=== PATIENT | female | born 1975 | race Caucasian/White ===

== ENCOUNTER 2020-10-12 18:42 | Emergency (ER) | payer MEDICAID, OTHER, SELFPAY ==
[2020-10-12 19:06] VITALS: BP 163/96; PULSE 94; RESP 18; TEMP 36.8; O2SAT 97; BMI 35.2
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
== END 2020-10-12 21:07 | disposition home or self-care (01) ==
PROVIDERS: Emergency Provider Internal Medicine
DX: S39.012A Strain of muscle, fascia and tendon of lower back, initial encounter (principal); S46.911A Strain of unspecified muscle, fascia and tendon at shoulder and upper arm level, right arm, initial encounter; V43.52XA Car driver injured in collision with other type car in traffic accident, initial encounter; Y93.89 Activity, other specified; Y92.414 Local residential or business street as the place of occurrence of the external cause; Y99.9 Unspecified external cause status
CPT/HCPCS: 99283; 99284

== ENCOUNTER 2021-03-25 14:18 | Outpatient (REF) | payer MEDICAID, SELFPAY ==
[2021-03-25 14:52] LABS: COVID-19 Test Negative (Negative)
== END 2021-03-25 14:19 | disposition home or self-care (01) ==
LOC: HO.LAB 14:18
PROVIDERS: Visit Provider Internal Medicine
DX: Z20.822 Contact with and (suspected) exposure to COVID-19 (principal)
CPT/HCPCS: 36415; 87635; C9803

== ENCOUNTER 2021-04-14 14:18 | Emergency (ER) | payer MEDICAID, SELFPAY ==
--- NOTE | 2021-04-14 | ECG_ITS ---
Test Reason : HEADACHE Blood Pressure : / mmHG Vent. Rate : 065 BPM Atrial Rate : 065 BPM P-R Int : 152 ms QRS Dur : 086 ms QT Int : 420 ms P-R-T Axes : 036 -11 -14 degrees QTc Int : 436 ms Normal sinus rhythm Moderate voltage criteria for LVH, may be normal variant Nonspecific ST abnormality Abnormal ECG No previous ECGs available Referred By: Generic ED Physician Electronically Signed By:JOSELIN ESCALANTE
--- NOTE | ~2021-04-14 | CT_ITS ---
EXAMINATION: CT ANGIOGRAM OF THE CHEST WITH AND WITHOUT CONTRAST (CT PULMONARY ANGIOGRAM FOR PE) CLINICAL INFORMATION: Reason for Exam sob, cp, elevated d dimer, r/o pe COMPARISON: chest x-ray April 14, 2021 TECHNIQUE: Prior to contrast administration, noncontrast localization images were obtained. Subsequently, multidetector volumetric imaging was performed from the thoracic inlet to below the diaphragms following the administration of 71 mL Omnipaque 350 intravenous contrast. No contrast reaction reported Sagittal, coronal, and MIP oblique sagittal reformatted images were obtained on the CT workstation, uploaded to PACS, and reviewed. This CT examination was performed using dose optimization techniques as appropriate, variously including the following: *Automated exposure control *Adjustment of mA and/or kV according to patient size (this includes techniques or standardized protocols for targeted exams where dose is matched to indication/reason for exam; i.e. extremities or head) *Use of iterative reconstruction technique Total exam dose-length product 293 mGy-cm FINDINGS: QUALITY OF STUDY/CONTRAST BOLUS: Satisfactory. PULMONARY ARTERIES: No central or segmental pulmonary emboli. THORACIC AORTA: No aneurysm or dissection. LUNG: No focal consolidation, nodules or masses. PLEURA: No pleural effusion or pneumothorax. MEDIASTINUM: Normal heart size. No pericardial effusion. No hilar or mediastinal lymphadenopathy. No evidence of septal bowing or right heart strain. CHEST WALL/AXILLA: No axillary or internal mammary lymphadenopathy. OSSEOUS STRUCTURES: No acute or suspicious osseous abnormality. UPPER ABDOMEN: Unremarkable. No reflux of contrast into the hepatic veins to suggest elevated right heart pressures. CT/CT angio chest PE protocol IMPRESSION: Normal CT of chest. No evidence of pulmonary embolism. VTE: negative
--- NOTE | ~2021-04-14 | XR_ITS ---
EXAMINATION: XR CHEST CLINICAL INFORMATION: Chest pain. Covid positive. COMPARISON: None TECHNIQUE: Frontal view of the chest was obtained. FINDINGS: No significant abnormality is noted involving the heart, lungs, mediastinum, bony thorax or soft tissues. XR/XR chest 1V IMPRESSION: Unremarkable examination.
[2021-04-14 15:02] VITALS: BP 167/96; PULSE 80; RESP 16; TEMP 36.5; O2SAT 98; BMI 38.7
[2021-04-14 16:00] VITALS: BP 150/99; PULSE 75; TEMP 36.9; O2SAT 100
--- NOTE | 2021-04-14 16:42 | ED_ITS ---
HPI - General Adult General Chief complaint: Headache Stated complaint: POS COVID CHEST DISCOMFORT Time Seen by Provider: 04/14/21 16:10 Source: patient Mode of arrival: ambulatory Limitations: no limitations History of Present Illness HPI narrative: 45-year-old female with a past medical history of asthma, migraine, arthritis here with some complaints of intermittent headache, chest discomfort with deep breathing and movement, cough and mild shortness of breath for the last few days. Patient tells me she started to have symptoms of COVID on April 04. She was tested on April 07 and found out she was positive on April 08. Today is her last day of quarantine. She tells me she initially had fever but this is resolved. No leg swelling or pain Tylenol helps her pain Related Data Previous Rx's Medication Instructions Recorded cyclobenzaprine 5 mg tablet 5 mg PO TID PRN #14 tab 10/12/20 Allergies Allergy/AdvReac Type Severity Reaction Status Date / Time aspirin [ASA] Allergy Unknown UNKNOWN Verified 10/12/20 19:50 Penicillins [PENICILLINS] Allergy Unknown UNKNOWN Verified 10/12/20 19:50 Review of Systems Review of Systems: Yes all other systems are reviewed and are negative Constitutional: Constitutional: Reports no additional constitutional complaint s, Denies body ache(s), Denies chills, Denies fever(s), Reports headache(s) and Denies weakness Eyes: Eyes: Reports no additional eye complaints and Denies change in vision ENT: Reports system reviewed and no additional complaints, except as documented, Denies dizziness, Reports headache(s), Denies nasal congestion, Denies nasal discharge and Denies neck pain Cardiovascular: Cardiovascular: Reports no additional cardiovascular complaints, Reports chest pain, Denies leg edema and Reports dyspnea Respiratory: Respiratory: Reports no additional respiratory complaints, Denies cough and Reports dyspnea Gastrointestinal: Gastrointestinal: Reports no additional gastrointestinal complaints, Denies abdominal pain, Denies diarrhea, Denies nausea and Denies vomiting Genitourinary: Genitourinary: Reports no additional female genitourinary complaints and Denies urinary incontinence Musculoskeletal: Musculoskeletal: Reports no additional musculoskeletal complaints, Denies back pain, Denies arthralgias, Denies joint swelling, Denies neck pain, Denies numbness and Denies tingling Integumentary/Breasts: Skin/Breast: Reports system reviewed and no additional complaints, except as docu and Denies rash Neurologic: Reports system reviewed and no additional complaints, except as documented, Denies Abnormal speech present, Denies dizziness, Reports headache(s), Denies numbness, Denies tingling and Denies weakness PMFSH Past Medical History Attestation statement: The following information was validated with the patient. Source: old records reviewed and nursing notes reviewed Medical History Asthma Head ache Social History Social History Alcohol intake: never Advance Directives: Yes Advance Directives Information Provided: Yes Advance Directives on File: No Patient : No Physical Exam Vital Signs: Vital Signs: Last Vital Signs Temp 98.2 F 04/14/21 20:37 Pulse 72 04/14/21 20:37 Resp 16 04/14/21 21:35 BP 151/91 H 04/14/21 20:37 Pulse Ox 100 04/14/21 16:00 Body Mass Index 38.7 Const: General: cooperative, healthy appearing, comfortable and no acute distress Orientation/consciousness: patient oriented x3 Limitations: no limitations HENMT: Head: Yes normal to inspection Ears: hearing grossly normal bilaterally General nose exam: Normal external nose present Face and sinus: Yes normal facial exam Mouth: Normal oral and palatal mucosa present Throat: Yes posterior oropharynx normal Eyes: General: appearance normal, both eyes and all related structures Pupils: Equal, round and reactive pupils present Neck: Neck: Yes normal visual inspection Chest: Other: Central chest tender to palpate, worsened with deep breathing and movement Chest palpation & inspection: normal inspection of the chest Resp: Effort & Inspection: normal respiratory effort Auscultation: clear to auscultation bilaterally Cardio: Rate: regular rate Rhythm: regular rhythm Peripheral pulses: Peripheral pulses 2+ throughout GI: Inspection: Yes normal to inspection Palpation (GI): Soft to palpation and nontender Auscultation: normal bowel sounds Back/Spine/Pelvis: Thoracic/Lumbar Spine: thoracic and lumbar spine normal to inspection Skin: General skin exam: no rashes or lesions noted Neuro: General: patient oriented x3, no focal motor deficits and normal sensation to monofilament Cranial nerves: Yes Equal, round and reactive pupils present Cognition (Neuro): normal cognition Speech: No Abnormal speech present Gait exam (Neuro): Normal gait present Motor exam (neuro): 5/5 motor strength present throughout Extrem: General: Yes normal to inspection, Yes no pedal edema and Yes no calf tenderness Course Course Course Narrative: 45-year-old female COVID positive here with complaints of some chest discomfort which is pleuritic in nature with some mild shortness of breath and intermittent headaches. Hemodynamically stable. No leg swelling or pain. Will check chest x-ray, labs, EKG. 1730-D dimer elevated. D/t complaints of chest discomfort, SOB with recent COVID will check CTA to r/o PE. 1999-CT negative for PE. No evidence of pneumonia. Repeat troponin delta. Less likely ACS with atypical chest pain and EKG which shows no ischemic changes. Discussed findings with the patient. Reviewed worrisome signs and symptoms of when to return to the emergency department. Comfortable discharge home. Oxygen saturations greater than 98% on room air. Speaking full sentences in no apparent distress Medical Decision Making MDM Narrative Medical decision making narrative: acs, pe, pna Medical Records Medical records reviewed: Yes I reviewed the patient's medical records. Lab Data Lab results reviewed: Yes I reviewed the patient's lab results. Result diagrams: 04/14/21 16:56 04/14/21 16:55 Labs: Lab Results 04/14/21 04/14/21 04/14/21 Range/Units 16:55 16:55 16:56 WBC 7.6 (4.8-10.8) X10*3/uL RBC 5.05 (4.20-5.50) X10*6/uL Hgb 14.0 (12.0-16.0) g/dl Hct 39.4 (37-47) % MCV 78.0 L (80-98) fL MCH 27.7 (27.0-33.0) pg MCHC 35.5 H (31.0-35.0) g/dl RDW 13.0 (11.0-16.0) % Plt Count 219 (160-400) X10*3/uL MPV 9.5 (9.4-12.3) fL Immature Gran % (Auto) 0.3 (0.0-0.4) % Neut % (Auto) 54.9 (45-73) % Lymph % (Auto) 26.1 (20-40) % [place] % (Auto) 7.8 (2-11) % Eos % (Auto) 10.4 H (0-4) % Baso % (Auto) 0.5 (0-2) % Lymph # (Auto) 2.0 (1.2-4.9) X10*3/uL [place] # (Auto) 0.6 (0.1-1.2) X10*3/uL Eos # (Auto) 0.8 H (0.0-0.4) X10*3/uL Baso # (Auto) 0.0 (0.0-0.2) X10*3/uL Abs Immat Gran (auto) 0.02 (0.00-0.03) X10*3/uL Absolute Neuts (auto) 4.2 (2.0-8.3) X10*3/uL Absolute Nucleated RBC 0.000 (0.0-0.012) X10*3/uL Nucleated RBC % (auto) 0.0 (0.0-0.2) /100WBC PT (9.9-13.0) SEC INR (0.9-1.1) D-Dimer NG/ML Sodium 138 (135-145) mmol/L Potassium 3.2 L (3.3-5.1) mmol/L Chloride 103 (96-108) mmol/L Carbon Dioxide 28 (22-29) mmol/L Anion Gap 10 L (12-20) BUN 5 L (9-16) mg/dL Creatinine 0.82 (0.5-1.4) mg/dL Estim Creat Clear Calc 84.6 Estimated GFR > 60 Random Glucose 132 H (60-115) mg/dL Calcium 8.9 (8.4-10.2) mg/dL Magnesium 1.7 (1.6-2.6) mg/dL Total Bilirubin 1.3 H (0.0-1.0) mg/dL Direct Bilirubin 0.4 (0.0-0.5) mg/dL AST 19 (5-31) U/L ALT 15 (0-31) U/L Alkaline Phosphatase 75 (39-117) U/L Troponin I High Sens 31.9 H* (<3.5-17.0) ng/L Total Protein 7.2 (6.5-8.0) g/dL Albumin 3.8 (3.5-5.0) g/dL 04/14/21 04/14/21 Range/Units 16:56 20:32 WBC (4.8-10.8) X10*3/uL RBC (4.20-5.50) X10*6/uL Hgb (12.0-16.0) g/dl Hct (37-47) % MCV (80-98) fL MCH (27.0-33.0) pg MCHC (31.0-35.0) g/dl RDW (11.0-16.0) % Plt Count (160-400) X10*3/uL MPV (9.4-12.3) fL Immature Gran % (Auto) (0.0-0.4) % Neut % (Auto) (45-73) % Lymph % (Auto) (20-40) % [place] % (Auto) (2-11) % Eos % (Auto) (0-4) % Baso % (Auto) (0-2) % Lymph # (Auto) (1.2-4.9) X10*3/uL [place] # (Auto) (0.1-1.2) X10*3/uL Eos # (Auto) (0.0-0.4) X10*3/uL Baso # (Auto) (0.0-0.2) X10*3/uL Abs Immat Gran (auto) (0.00-0.03) X10*3/uL Absolute Neuts (auto) (2.0-8.3) X10*3/uL Absolute Nucleated RBC (0.0-0.012) X10*3/uL Nucleated RBC % (auto) (0.0-0.2) /100WBC PT 12.4 (9.9-13.0) SEC INR 1.1 (0.9-1.1) D-Dimer 282 NG/ML Sodium (135-145) mmol/L Potassium (3.3-5.1) mmol/L Chloride (96-108) mmol/L Carbon Dioxide (22-29) mmol/L Anion Gap (12-20) BUN (9-16) mg/dL Creatinine (0.5-1.4) mg/dL Estim Creat Clear Calc Estimated GFR Random Glucose (60-115) mg/dL Calcium (8.4-10.2) mg/dL Magnesium (1.6-2.6) mg/dL Total Bilirubin (0.0-1.0) mg/dL Direct Bilirubin (0.0-0.5) mg/dL AST (5-31) U/L ALT (0-31) U/L Alkaline Phosphatase (39-117) U/L Troponin I High Sens 26.2 H* (<3.5-17.0) ng/L Total Protein (6.5-8.0) g/dL Albumin (3.5-5.0) g/dL Imaging Data Chest x-ray: Attestation: I personally reviewed and interpreted this imaging study as follows: Radiologist's impression: EXAMINATION: XR CHEST CLINICAL INFORMATION: Chest pain. Covid positive. COMPARISON: None TECHNIQUE: Frontal view of the chest was obtained. FINDINGS: No significant abnormality is noted involving the heart, lungs, mediastinum, bony thorax or soft tissues. XR/XR chest 1V IMPRESSION: Unremarkable examination. ? CT scan - chest: Attestation: I personally reviewed and interpreted this imaging study as follows: Radiologist's impression: Rosario Castaneda I??45??F??1975 ? Allergy/Adv: aspirin, Penicillins (More??) Close ED Discharge Packet 04/14/21 21:25 ER Physician Documentation 04/14/21 16:42 Electrocardiogram 04/14/21 00:00 Chest CTA 04/14/21 17:24 Chest X-Ray 04/14/21 16:25 Launch?Image [address] [address] [address] Scan Report Signed Patient: Rosario Castaneda I MR#: [id number] : 1975 Acct:[id number] Age/Sex: 45 / F ADM Date: 04/14/21 Loc: .ED Attending Dr: Ordering Physician: Hemalatha Tenorio NP Date of Service: 04/14/21 Procedure(s): CT angio chest PE protocol Accession Number(s): [id number] cc: Hemalatha Tenorio NP~ EXAMINATION: CT ANGIOGRAM OF THE CHEST WITH AND WITHOUT CONTRAST (CT PULMONARY ANGIOGRAM FOR PE) CLINICAL INFORMATION: Reason for Exam sob, cp, elevated d dimer, r/o pe COMPARISON: chest x-ray April 14, 2021? TECHNIQUE: Prior to contrast administration, noncontrast localization images were obtained. ? Subsequently, multidetector volumetric imaging was performed from the thoracic inlet to below the diaphragms following the administration of 71 mL Omnipaque 350 intravenous contrast. No contrast reaction reported Sagittal, coronal, and MIP oblique sagittal reformatted images were obtained on the CT workstation, uploaded to PACS, and reviewed. This CT examination was performed using dose optimization techniques as appropriate, variously including the following: *Automated exposure control *Adjustment of mA and/or kV according to patient size (this includes techniques or standardized protocols for targeted exams where dose is matched to indication/reason for exam; i.e. extremities or head) *Use of iterative reconstruction technique Total exam dose-length product 293 mGy-cm FINDINGS: QUALITY OF STUDY/CONTRAST BOLUS: Satisfactory. PULMONARY ARTERIES: No central or segmental pulmonary emboli.? THORACIC AORTA: No aneurysm or dissection. LUNG: No focal consolidation, nodules or masses. PLEURA: No pleural effusion or pneumothorax. MEDIASTINUM: Normal heart size.? No pericardial effusion.? No hilar or mediastinal lymphadenopathy.? No evidence of septal bowing or right heart strain. CHEST WALL/AXILLA: No axillary or internal mammary lymphadenopathy. OSSEOUS STRUCTURES: No acute or suspicious osseous abnormality.? UPPER ABDOMEN: Unremarkable.? No reflux of contrast into the hepatic veins to suggest elevated right heart pressures. CT/CT angio chest PE protocol IMPRESSION: Normal CT of chest. No evidence of pulmonary embolism. ? VTE: negative ECG Data Attestation: I personally reviewed and interpreted this ECG as follows: Interpretation: EKG 1628 Normal sinus rhythm with a rate of 65, normal NV, normal QRS, normal QT, nonspecific ST changes Discharge Plan Discharge Clinical Impression: Headache, Atypical chest pain Patient Disposition: Home, Self-Care Instructions: Chest Pain (ED), Acute Headache (ED) Additional Instructions: Your lab work, CT scan of your chest looked normal Continue fluids and rest Motrin or Tylenol as needed for pain or fever You do not need to continue your quarantine Prescriptions: No Action cyclobenzaprine 5 mg tablet 5 mg PO TID PRN (Reason: muscle spasm) Qty: 14 RF: 0 Referrals: Physician,Unknown [Primary Care Provider] - 2 days Interventions: ED Discharge Assessment Last Done: 04/14/21 21:35 Discharge Date/Time: 04/14/21 21:36
[2021-04-14 17:03] LABS: MANUAL DIFF FLAG NO
[2021-04-14 17:04] LABS: Basophils Percent Auto 0.5 % (0-2); Eosinophils Absolute Auto 0.8 X10*3/uL (0.0-0.4); Eosinophils Percent Auto 10.4 % (0-4); Hematocrit 39.4 % (37-47); Imm Gran Abs Auto 0.02 X10*3/uL (0.00-0.03); Imm Gran Pct Auto 0.3 % (0.0-0.4); Lymphocytes Percent Auto 26.1 % (20-40); Mean Corpuscular HGB Conc 35.5 g/dl (31.0-35.0); Mean Corpuscular Hemoglobin 27.7 pg (27.0-33.0); Mean Platelet Volume 9.5 fL (9.4-12.3); Monocytes Absolute Auto 0.6 X10*3/uL (0.1-1.2); Monocytes Percent Auto 7.8 % (2-11); Neutrophils Absolute Auto 4.2 X10*3/uL (2.0-8.3); Neutrophils Percent Auto 54.9 % (45-73); Platelet Count 219 X10*3/uL (160-400); Red Blood Count 5.05 X10*6/uL (4.20-5.50); White Blood Count 7.6 X10*3/uL (4.8-10.8)
[2021-04-14 17:09] LABS: INTERNATIONAL NORM RATIO 1.1 (0.9-1.1); Prothrombin Time 12.4 SEC (9.9-13.0)
[2021-04-14 17:12] LABS: D Dimer 282 NG/ML
[2021-04-14 17:20] LABS: Alanine Aminotransferase 15 U/L (0-31); Albumin Level 3.8 g/dL (3.5-5.0); Alkaline Phosphatase 75 U/L (39-117); Anion Gap 10 (12-20); Aspartate Amino Transferase 19 U/L (5-31); Bilirubin Direct 0.4 mg/dL (0.0-0.5); Bilirubin Total 1.3 mg/dL (0.0-1.0); Blood Urea Nitrogen 5 mg/dL (9-16); Calcium 8.9 mg/dL (8.4-10.2); Carbon Dioxide 28 mmol/L (22-29); Chloride 103 mmol/L (96-108); Creatinine Clr Calc Pharmacy 84.6; Estimated Glomerular Filt Rate > 60; Glucose Random 132 mg/dL (60-115); Magnesium 1.7 mg/dL (1.6-2.6); Potassium 3.2 mmol/L (3.3-5.1); Sodium 138 mmol/L (135-145); Total Protein 7.2 g/dL (6.5-8.0)
[2021-04-14 17:34] LABS: Troponin-I High Sensitivity 31.9 ng/L (<3.5-17.0)
[2021-04-14] MEDS: Potassium Chloride ER 20 MEQ TAB.ER.PRT 30 MEQ PO (19:05)
--- NOTE | 2021-04-14 19:10 | PC.NURSE ---
pt requesting pain medication for headache provider notified
--- NOTE | 2021-04-14 19:21 | PC.NURSE ---
pt off to CT
--- NOTE | 2021-04-14 19:32 | PC.NURSE ---
pt back from CT
[2021-04-14] MEDS: iohexoL 350 MG/ML 100 ML INFUS..BTL IV (19:33)
[2021-04-14] MEDS: Acetaminophen 325 MG TABLET 975 MG PO (19:33)
[2021-04-14 20:37] VITALS: BP 151/91; PULSE 72; TEMP 36.8
[2021-04-14 21:04] LABS: Troponin-I High Sensitivity 26.2 ng/L (<3.5-17.0)
[2021-04-14 21:35] VITALS: RESP 16
== END 2021-04-14 21:36 | disposition home or self-care (01) ==
PROVIDERS: Nurse Practitioner Family; Emergency Provider Emergency Medicine Emergency Medical Services
DX: U07.1 COVID-19 (principal); R51.9 Headache, unspecified; R07.9 Chest pain, unspecified; Z79.899 Other long term (current) drug therapy
CPT/HCPCS: 36415; 71045; 71275; 80048; 80076; 83735; 84484; 85025; 85379; 85610; 93005; 99284; Q9967

== ENCOUNTER 2021-06-11 11:28 | Emergency (ER) | payer MEDICAID, SELFPAY ==
[2021-06-11 11:48] VITALS: BP 141/84; PULSE 87; RESP 18; TEMP 36.8; O2SAT 97; BMI 37.0
--- NOTE | 2021-06-11 12:30 | ED.GENADULT ---
HPI - General Adult General Chief complaint: General Medical <Grupo Carmen - Last Filed: 06/11/21 12:43> Stated complaint: facial swelling, ear pain <Grupo Carmen - Last Filed: 06/11/21 12:43> Time Seen by Provider: 06/11/21 12:30 <Grupo Carmen - Last Filed: 06/11/21 12:43> Source: patient <Grupo Carmen - Last Filed: 06/11/21 12:43> Limitations: no limitations <Grupo Carmen - Last Filed: 06/11/21 12:43> History of Present Illness HPI narrative: Patient awoke this morning with right-sided facial swelling in front of her ear. Patient denies any recent trauma to that side of the face patient denies any dental pain ear pain nausea vomiting no history of diabetes and no history of similar events in the past. Symptoms are mild to moderate. Pain is 5/10. Patient denies fever chills chest pain shortness of breath. No other complaints at this time. Patient has past medical history of asthma migraine headaches which he takes meds as needed for. <Grupo Carmen - Last Filed: 06/11/21 12:43> Related Data Home medications: Previous Rx's Medication Instructions Recorded cyclobenzaprine 5 mg tablet 5 mg PO TID PRN #14 tab 10/12/20 <Grupo Carmen - Last Filed: 06/11/21 12:43> Allergies/adverse reactions: Allergies Allergy/AdvReac Type Severity Reaction Status Date / Time aspirin [ASA] Allergy Unknown UNKNOWN Verified 06/11/21 11:48 Penicillins [PENICILLINS] Allergy Unknown UNKNOWN Verified 06/11/21 11:48 <Grupo Carmen - Last Filed: 06/11/21 12:43> Review of Systems Constitutional: Constitutional: Denies chills, Denies fever(s), Denies headache(s) and Denies malaise <Grupo Carmen - Last Filed: 06/11/21 12:43> ENT: Denies headache(s) <Grupo Carmen - Last Filed: 06/11/21 12:43> Comments: Right-sided facial swelling <Grupo Carmen - Last Filed: 06/11/21 12:43> Cardiovascular: Cardiovascular: Denies chest pain and Denies dyspnea <Grupo Carmen - Last Filed: 06/11/21 12:43> Respiratory: Respiratory: Denies dyspnea <Grupo Carmen - Last Filed: 06/11/21 12:43> Gastrointestinal: Gastrointestinal: Denies nausea and Denies vomiting <Grupo Carmen - Last Filed: 06/11/21 12:43> Musculoskeletal: Musculoskeletal: Reports no additional musculoskeletal complaints and Denies numbness <Grupo Carmen - Last Filed: 06/11/21 12:43> Neurologic: Denies headache(s) and Denies numbness <Grupo Carmen - Last Filed: 06/11/21 12:43> Endocrine: Endocrine: Reports no additional endocrine complaints <Grupo Carmen - Last Filed: 06/11/21 12:43> [facility] Past Medical History Attestation statement: The following information was validated with the patient. <Grupo Carmen - Last Filed: 06/11/21 12:43> Medical History: Medical History Asthma Head ache <Grupo Carmen - Last Filed: 06/11/21 12:43> Social History Social History: Social History Alcohol intake: never Advance Directives: No Advance Directives Information Provided: Yes Patient : No <Grupo Carmen - Last Filed: 06/11/21 12:43> Physical Exam Vital Signs: Vital Signs: Last Vital Signs Temp 98.2 F 06/11/21 11:48 Pulse 87 06/11/21 11:48 Resp 18 06/11/21 11:48 BP 141/84 H 06/11/21 11:48 Pulse Ox 97 06/11/21 11:48 Body Mass Index 37.0 vital signs have been reviewed as normal and appeared to be correct. Blood pressure normal. Heart rate normal. Respiration rate normal. Temperature normal. Oxygen saturation normal. <Grupo Kemrit - Last Filed: 06/11/21 12:43> Vital Signs: Last Vital Signs Temp 98.2 F 06/11/21 11:48 Pulse 87 06/11/21 11:48 Resp 18 06/11/21 11:48 BP 141/84 H 06/11/21 11:48 Pulse Ox 97 06/11/21 11:48 Body Mass Index 37.0 <Boogie Bains MD - Last Filed: 06/11/21 12:41> Appearance: Alert. Oriented X3. No acute distress. Head: Normal external exam. Normocephalic. Atraumatic. Eyes: PERRLA. EOMI. Conjunctiva and sclera normal. Eyelids normal. ENT: Oropharynx is clear dentition is nontender no sign of oral abscesses noted positive swelling the right parotid gland slight tenderness noted right ear is clear TMs intact. Neck: Soft full range of motion CVS: Heart regular rate and rhythm no murmurs and rubs Respiratory: Breath sounds are clear to auscultation bilaterally. No accessory muscle use noted. Skin: Skin warm and dry. Normal skin color. Normal skin turgor. No rashes/lesions/lacerations noted. Extremities: No lower extremity edema. Extremities exhibit normal range of motion. Extremities nontender. Neuro: Oriented X 3. No motor deficit. No sensory deficit. Reflexes normal. <Grupo Carmen - Last Filed: 06/11/21 12:43> Course Course Course Narrative: Parotiditis Dental abscess Facial swelling Mastoiditis Symptoms seem consistent with parotidits case discussed with Dr. Bains patient also evaluated believes this is viral will discharge home with supportive care <Grupo Carmen - Last Filed: 06/11/21 12:43> Reevaluation(s) Reevaluation #1: Right facial swelling consistent with viral parotiditis will dc home on butterscotch candies and tylenol <Boogie Bains MD - Last Filed: 06/11/21 12:41> Time: 12:41 <Boogie Bains MD - Last Filed: 06/11/21 12:41> Discharge Plan Discharge Clinical Impression: Acute parotitis <Grupo Carmen - Last Filed: 06/11/21 12:43> Patient Disposition: Home, Self-Care <Grupo Carmen - Last Filed: 06/11/21 12:43> Instructions: Mumps in Adults (ED) <Grupo Carmen - Last Filed: 06/11/21 12:43> Additional Instructions: His symptoms are consistent with viral parotitis on the right side Use butterscotch candies to help swelling decrease Tylenol for pain Return if symptoms worsen <Grupo Carmen - Last Filed: 06/11/21 12:43> Prescriptions: No Action cyclobenzaprine 5 mg tablet 5 mg PO TID PRN (Reason: muscle spasm) Qty: 14 RF: 0 <Grupo Carmen - Last Filed: 06/11/21 12:43>
== END 2021-06-11 13:06 | disposition home or self-care (01) ==
PROVIDERS: Emergency Provider Emergency Medicine
DX: K11.21 Acute sialoadenitis (principal); J45.909 Unspecified asthma, uncomplicated
CPT/HCPCS: 99283

== ENCOUNTER 2021-08-20 09:13 | Emergency (ER) | payer MEDICAID, SELFPAY ==
[2021-08-20 09:27] VITALS: BP 211/97; PULSE 97; RESP 19; TEMP 36.6; O2SAT 98; BMI 35.2
--- NOTE | 2021-08-20 09:34 | ECG_ITS ---
Test Reason : chest tightness Blood Pressure : / mmHG Vent. Rate : 095 BPM Atrial Rate : 095 BPM P-R Int : 138 ms QRS Dur : 082 ms QT Int : 368 ms P-R-T Axes : 035 -05 -03 degrees QTc Int : 462 ms Normal sinus rhythm Minimal voltage criteria for LVH, may be normal variant ( R in aVL ) Nonspecific ST and T wave abnormality Prolonged QT Abnormal ECG When compared with ECG of 14-APR-2021 16:28, Nonspecific T wave abnormality, worse in Anterolateral leads Referred By: Generic ED Physician Electronically Signed By:Nikolay Spence
[2021-08-20 09:51] LABS: MANUAL DIFF FLAG NO
[2021-08-20 10:03] LABS: Basophils Percent Auto 0.6 % (0-2); Eosinophils Absolute Auto 0.7 X10*3/uL (0.0-0.4); Eosinophils Percent Auto 9.6 % (0-4); Hematocrit 40.8 % (37.0-47.0); Imm Gran Abs Auto 0.03 X10*3/uL (0.00-0.03); Imm Gran Pct Auto 0.4 % (0.0-0.4); Lymphocytes Absolute Auto 2.4 X10*3/uL (1.2-4.9); Lymphocytes Percent Auto 33.5 % (20-40); Mean Corpuscular HGB Conc 34.3 g/dl (31.0-35.0); Mean Corpuscular Hemoglobin 27.2 pg (27.0-33.0); Mean Corpuscular Volume 79.2 fL (80.0-98.0); Mean Platelet Volume 9.5 fL (9.4-12.3); Monocytes Absolute Auto 0.7 X10*3/uL (0.1-1.2); Monocytes Percent Auto 9.3 % (2-11); Neutrophils Absolute Auto 3.3 x10*3/uL (2.0-8.3); Neutrophils Percent Auto 46.6 % (45-73); Platelet Count 295 X10*3/uL (160-400); Red Blood Count 5.15 X10*6/uL (4.20-5.50); White Blood Count 7.1 X10*3/uL (4.8-10.8)
[2021-08-20 10:05] LABS: COVID-19 Test Positive (Negative); IDNOW Serial# 9DD0AD1C
[2021-08-20 10:10] LABS: Anion Gap 12 (12-20); Blood Urea Nitrogen 6 mg/dL (9-16); Calcium 9.2 mg/dL (8.4-10.2); Carbon Dioxide 27 mmol/L (22-29); Chloride 104 mmol/L (96-108); Creatinine Clr Calc Pharmacy 70.7; Estimated Glomerular Filt Rate > 60; Glucose Random 236 mg/dL (60-115); Potassium 3.1 mmol/L (3.3-5.1); Sodium 140 mmol/L (135-145)
[2021-08-20 10:25] VITALS: BP 139/91; PULSE 93; RESP 18; TEMP 37.3; O2SAT 97
--- NOTE | 2021-08-20 10:56 | ED.GENADULT ---
HPI - General Adult General Chief complaint: General Medical Stated complaint: Multiple complaints Time Seen by Provider: 08/20/21 09:45 Source: patient Mode of arrival: ambulatory Limitations: no limitations History of Present Illness HPI narrative: 46-year-old female who presents emergency department for evaluation of shortness of breath, chest tightness, dyspnea on exertion, cough, lightheadedness, headache, diarrhea and joint pain. The patient states that she has been sick since 08/16/2021 (5 days prior to evaluation). The patient has been vaccinated with the [place] COVID-19 vaccine x2 vaccinations. She states that her symptoms were getting progressively worse therefore she came to the emergency department for evaluation. Initial O2 saturation was 97% on room air. Related Data Previous Rx's Medication Instructions Recorded cyclobenzaprine 5 mg tablet 5 mg PO TID PRN #14 tab 10/12/20 Allergies Allergy/AdvReac Type Severity Reaction Status Date / Time aspirin [ASA] Allergy Unknown UNKNOWN Verified 06/11/21 11:48 Penicillins [PENICILLINS] Allergy Unknown UNKNOWN Verified 06/11/21 11:48 Review of Systems Review of Systems: Yes all other systems are reviewed and are negative [facility] Past Medical History [facility] Narrative: Past medical history: Hypertension, asthma, obesity, arthritis, migraines. Past surgical history: Partial hysterectomy, bilateral tubal ligation. Social history: Patient denies tobacco use. She occasionally drinks alcohol. She denies drug use. Medical History (Updated 08/20/21 @ 11:03 by Adam Crowell MD) Asthma Head ache HTN (hypertension) Social History Social History Alcohol intake: never Advance Directives: No Advance Directives Information Provided: No Patient : No Physical Exam Vital Signs: Vital Signs: Last Vital Signs Temp 99.2 F 08/20/21 10:25 Pulse 93 08/20/21 10:25 Resp 18 08/20/21 10:25 BP 139/91 H 08/20/21 10:25 Pulse Ox 97 08/20/21 10:25 BMI result Body Mass Index 35.2 Const: General: cooperative and no acute distress Orientation/consciousness: oriented to person and oriented to place Limitations: no limitations HENMT: Head: Yes normal to inspection, Yes normocephalic and Yes atraumatic Ears: external ears normal General nose exam: Normal external nose present Face and sinus: Yes normal facial exam Mouth: Normal oral and palatal mucosa present Throat: Yes posterior oropharynx normal Eyes: General: appearance normal, both eyes and all related structures Pupils: Equal, round and reactive pupils present Neck: Neck: Yes normal visual inspection, Yes no lymphadenopathy, Yes trachea midline and Yes supple Chest: Chest palpation & inspection: normal inspection of the chest and normal palpation of entire chest wall Resp: Effort & Inspection: normal respiratory effort and able to speak in complete sentences Auscultation: clear to auscultation bilaterally Cardio: Rate: regular rate Rhythm: regular rhythm Heart sounds: S1 normal heart sound present, S2 normal heart sound present and no murmurs GI: Inspection: Yes normal to inspection Palpation (GI): Soft to palpation, nontender and no guarding Auscultation: normal bowel sounds : General: Yes no CVA tenderness Back/Spine/Pelvis: Back: no CVA tenderness Skin: General skin exam: no rashes or lesions noted Neuro: General: oriented to person and oriented to place Cranial nerves: Yes CN's II-XII intact bilaterally and Yes Equal, round and reactive pupils present Cognition (Neuro): normal cognition Motor exam (neuro): 5/5 motor strength present throughout Extrem: General: Yes normal to inspection Psych: Appearance: grossly normal Speech and movement: Normal speech and movement present Affect: normal affect Attitude: cooperative Thought process: Normal thought process present Thought content: Normal thought content present Course Course Course Narrative: 46-year-old female who presents emergency department with a viral-like illness x5 days. Patient's initial vital signs revealed an elevated blood pressure of 139/91, pulse 93, respiratory 18, temperature 99.2? and O2 saturation 97% on room air. The patient's exam was otherwise unremarkable. The patient's laboratory evaluation revealed a slightly low potassium of 3.1 and a slightly elevated glucose of 236. COVID-19 test was positive. At this time, I do not think the patient has significant COVID pneumonia and her O2 saturation is normal. The patient does have significant risk factors for morbidity mortality from COVID-19 infection including obesity, asthma, hypertension. The patient will be referred to the [facility] monoclonal antibody clinic. Patient was given printed and verbal instructions and discharged home. Medical Decision Making Lab Data Result diagrams: 08/20/21 09:44 08/20/21 09:44 Labs: Lab Results 08/20/21 08/20/21 08/20/21 Range/Units 09:44 09:44 09:44 WBC 7.1 (4.8-10.8) X10*3/uL RBC 5.15 (4.20-5.50) X10*6/uL Hgb 14.0 (12.0-16.0) g/dl Hct 40.8 (37.0-47.0) % MCV 79.2 L (80.0-98.0) fL MCH 27.2 (27.0-33.0) pg MCHC 34.3 (31.0-35.0) g/dl RDW 13.0 (11.0-16.0) % Plt Count 295 (160-400) X10*3/uL MPV 9.5 (9.4-12.3) fL Immature Gran % (Auto) 0.4 (0.0-0.4) % Neut % (Auto) 46.6 (45-73) % Lymph % (Auto) 33.5 (20-40) % Granite % (Auto) 9.3 (2-11) % Eos % (Auto) 9.6 H (0-4) % Baso % (Auto) 0.6 (0-2) % Lymph # (Auto) 2.4 (1.2-4.9) X10*3/uL Granite # (Auto) 0.7 (0.1-1.2) X10*3/uL Eos # (Auto) 0.7 H (0.0-0.4) X10*3/uL Baso # (Auto) 0.0 (0.0-0.2) X10*3/uL Abs Immat Gran (auto) 0.03 (0.00-0.03) X10*3/uL Absolute Neuts (auto) 3.3 (2.0-8.3) x10*3/uL Absolute Nucleated RBC 0.000 (0.0-0.012) X10*3/uL Nucleated RBC % (auto) 0.0 (0.0-0.2) /100WBC Sodium 140 (135-145) mmol/L Potassium 3.1 L (3.3-5.1) mmol/L Chloride 104 (96-108) mmol/L Carbon Dioxide 27 (22-29) mmol/L Anion Gap 12 (12-20) BUN 6 L (9-16) mg/dL Creatinine 0.92 (0.5-1.4) mg/dL Estim Creat Clear Calc 70.7 Estimated GFR > 60 Random Glucose 236 H (60-115) mg/dL Calcium 9.2 (8.4-10.2) mg/dL Troponin I High Sens (<3.5-17.0) ng/L COVID-19 ([facility]) Positive A (Negative) COVID-19 Clin Com See Note 08/20/21 Range/Units 09:44 WBC (4.8-10.8) X10*3/uL RBC (4.20-5.50) X10*6/uL Hgb (12.0-16.0) g/dl Hct (37.0-47.0) % MCV (80.0-98.0) fL MCH (27.0-33.0) pg MCHC (31.0-35.0) g/dl RDW (11.0-16.0) % Plt Count (160-400) X10*3/uL MPV (9.4-12.3) fL Immature Gran % (Auto) (0.0-0.4) % Neut % (Auto) (45-73) % Lymph % (Auto) (20-40) % Granite % (Auto) (2-11) % Eos % (Auto) (0-4) % Baso % (Auto) (0-2) % Lymph # (Auto) (1.2-4.9) X10*3/uL Granite # (Auto) (0.1-1.2) X10*3/uL Eos # (Auto) (0.0-0.4) X10*3/uL Baso # (Auto) (0.0-0.2) X10*3/uL Abs Immat Gran (auto) (0.00-0.03) X10*3/uL Absolute Neuts (auto) (2.0-8.3) x10*3/uL Absolute Nucleated RBC (0.0-0.012) X10*3/uL Nucleated RBC % (auto) (0.0-0.2) /100WBC Sodium (135-145) mmol/L Potassium (3.3-5.1) mmol/L Chloride (96-108) mmol/L Carbon Dioxide (22-29) mmol/L Anion Gap (12-20) BUN (9-16) mg/dL Creatinine (0.5-1.4) mg/dL Estim Creat Clear Calc Estimated GFR Random Glucose (60-115) mg/dL Calcium (8.4-10.2) mg/dL Troponin I High Sens 17.0 (<3.5-17.0) ng/L COVID-19 ([facility]) (Negative) COVID-19 Clin Com Discharge Plan Discharge Clinical Impression: COVID-19 virus infection Patient Disposition: Home, Self-Care Instructions: COVID-19 (Coronavirus Disease 2019) (ED) Additional Instructions: Your vital signs today revealed a normal O2 saturation of 97 % on room air which is normal (92% to 100% is the normal range). We do not hospitalize people with a COVID-19 infection unless your O2 saturation drops below 90% and you have evidence for pneumonia on your chest x-ray. COVID-19 infection is a very bad viral infection and is causing all of your symptoms The symptoms that we normally see with a COVID-19 infection include sore throat, runny nose, chest pain, shortness of breath, shortness of breath with exertion, muscle aches, muscle pains, nausea, vomiting , diarrhea, loss of sense of taste or smell. You do not need to have all of the symptoms. Take Tylenol (acetaminophen) 500 mg pills, 2 pills every 4 to 6 hours as needed for pain and fever. Based on your evaluation today, it is okay to send you home. Please plan for self isolate for up to 14 days. Do not expose yourself to others. You may not go to work. Please continue to wear a mask at home, follow theCOVID-19 printed discharge instructions and wash your hands frequently. Please return to the emergency department if your symptoms pneumonia which would include worsening of your symptoms especially chest pain the breathing, shortness of breath at rest, shortness of breath with moving around her exerting herself, severe weakness, or if you develop any symptoms that are concerning to you. I am referring you to the [facility] COVID-19 monoclonal antibody treatment clinic in [place]. They should contact you on your cell phone to set up an appointment. If you do not hear from the clinic then you can emailed the clinic. You can also e-mail them if you do not hear from them in 2 days. Prescriptions: No Action cyclobenzaprine 5 mg tablet 5 mg PO TID PRN (Reason: muscle spasm) Qty: 14 RF: 0
== END 2021-08-20 11:47 | disposition home or self-care (01) ==
PROVIDERS: Emergency Provider Emergency Medicine Emergency Medical Services
DX: U07.1 COVID-19 (principal); I10 Essential (primary) hypertension; J45.909 Unspecified asthma, uncomplicated
CPT/HCPCS: 36415; 80048; 84484; 85025; 87635; 93005; 99283; 99284

== ENCOUNTER 2021-10-30 09:11 | Emergency (ER) | payer MEDICAID, SELFPAY ==
--- NOTE | ~2021-10-30 | XR_ITS ---
EXAMINATION: BILATERAL ANKLE, RIGHT KNEE AND CHEST. CLINICAL INFORMATION: Pain. COMPARISON: None TECHNIQUE: 3 views each ankle. 4 views right knee and chest 2 views. FINDINGS: Left ankle: There is bimalleolar soft tissue swelling. No visible fracture, dislocation or subluxation seen. The ankle mortise and subtalar joints are normal. Small calcaneal enthesophyte. Right knee: The tricompartment joint space is maintained normal. No visible acute fracture, dislocation or bony erosive changes. No abnormal suprapatellar joint effusion. There is prominent anterior tibial tubercle. Right ankle: There is a small retrocalcaneal enthesophyte. The ankle mortise and subtalar joints are normal. There is no visible acute fracture, dislocation or lytic process. There is mild soft tissue swelling lateral ankle. CHEST: The lungs are well-expanded and clear. The heart size and pulmonary vascularity is normal. No gross bony abnormality seen.. XR/XR ankle RT min 3V IMPRESSION: Small retrocalcaneal enthesophytes right ankle and calcaneal heel enthesophyte left ankle. No acute fracture or dislocation seen in either ankle. There is bimalleolar soft tissue swelling left ankle and lateral malleolar region right ankle. Unremarkable right knee exam. Unremarkable chest exam.
--- NOTE | ~2021-10-30 | XR_ITS ---
EXAMINATION: BILATERAL ANKLE, RIGHT KNEE AND CHEST. CLINICAL INFORMATION: Pain. COMPARISON: None TECHNIQUE: 3 views each ankle. 4 views right knee and chest 2 views. FINDINGS: Left ankle: There is bimalleolar soft tissue swelling. No visible fracture, dislocation or subluxation seen. The ankle mortise and subtalar joints are normal. Small calcaneal enthesophyte. Right knee: The tricompartment joint space is maintained normal. No visible acute fracture, dislocation or bony erosive changes. No abnormal suprapatellar joint effusion. There is prominent anterior tibial tubercle. Right ankle: There is a small retrocalcaneal enthesophyte. The ankle mortise and subtalar joints are normal. There is no visible acute fracture, dislocation or lytic process. There is mild soft tissue swelling lateral ankle. CHEST: The lungs are well-expanded and clear. The heart size and pulmonary vascularity is normal. No gross bony abnormality seen.. XR/XR knee RT 4V IMPRESSION: Small retrocalcaneal enthesophytes right ankle and calcaneal heel enthesophyte left ankle. No acute fracture or dislocation seen in either ankle. There is bimalleolar soft tissue swelling left ankle and lateral malleolar region right ankle. Unremarkable right knee exam. Unremarkable chest exam.
--- NOTE | ~2021-10-30 | XR_ITS ---
EXAMINATION: BILATERAL ANKLE, RIGHT KNEE AND CHEST. CLINICAL INFORMATION: Pain. COMPARISON: None TECHNIQUE: 3 views each ankle. 4 views right knee and chest 2 views. FINDINGS: Left ankle: There is bimalleolar soft tissue swelling. No visible fracture, dislocation or subluxation seen. The ankle mortise and subtalar joints are normal. Small calcaneal enthesophyte. Right knee: The tricompartment joint space is maintained normal. No visible acute fracture, dislocation or bony erosive changes. No abnormal suprapatellar joint effusion. There is prominent anterior tibial tubercle. Right ankle: There is a small retrocalcaneal enthesophyte. The ankle mortise and subtalar joints are normal. There is no visible acute fracture, dislocation or lytic process. There is mild soft tissue swelling lateral ankle. CHEST: The lungs are well-expanded and clear. The heart size and pulmonary vascularity is normal. No gross bony abnormality seen.. XR/XR ankle LT min 3V IMPRESSION: Small retrocalcaneal enthesophytes right ankle and calcaneal heel enthesophyte left ankle. No acute fracture or dislocation seen in either ankle. There is bimalleolar soft tissue swelling left ankle and lateral malleolar region right ankle. Unremarkable right knee exam. Unremarkable chest exam.
--- NOTE | ~2021-10-30 | XR_ITS ---
EXAMINATION: BILATERAL ANKLE, RIGHT KNEE AND CHEST. CLINICAL INFORMATION: Pain. COMPARISON: None TECHNIQUE: 3 views each ankle. 4 views right knee and chest 2 views. FINDINGS: Left ankle: There is bimalleolar soft tissue swelling. No visible fracture, dislocation or subluxation seen. The ankle mortise and subtalar joints are normal. Small calcaneal enthesophyte. Right knee: The tricompartment joint space is maintained normal. No visible acute fracture, dislocation or bony erosive changes. No abnormal suprapatellar joint effusion. There is prominent anterior tibial tubercle. Right ankle: There is a small retrocalcaneal enthesophyte. The ankle mortise and subtalar joints are normal. There is no visible acute fracture, dislocation or lytic process. There is mild soft tissue swelling lateral ankle. CHEST: The lungs are well-expanded and clear. The heart size and pulmonary vascularity is normal. No gross bony abnormality seen.. XR/XR chest 2V IMPRESSION: Small retrocalcaneal enthesophytes right ankle and calcaneal heel enthesophyte left ankle. No acute fracture or dislocation seen in either ankle. There is bimalleolar soft tissue swelling left ankle and lateral malleolar region right ankle. Unremarkable right knee exam. Unremarkable chest exam.
--- NOTE | ~2021-10-30 | US_ITS ---
EXAMINATION: US VENOUS ULTRASOUND WITH DOPPLER LOWER EXTREMITY, RIGHT CLINICAL INFORMATION: Right leg swelling. COMPARISON: None TECHNIQUE: Ultrasound of the deep veins is performed from the hip to the calf with compression sonography and color and pulse Doppler assessment. Spectral analysis with color-flow imaging is performed. FINDINGS: There is normal venous compression and respiratory variation and augmented flow. The visualized common femoral vein, superficial femoral vein, profunda femoral vein, popliteal vein, and the trifurcation region shows no evidence of deep venous thrombosis. There is no significant popliteal fossa cyst. If the patient's symptoms persist, followup ultrasound in 5 days 7 days might be of value to exclude proximal propagation from a non-visualized calf vein. US/US venous duplex LE RT IMPRESSION: No DVT demonstrated in the right lower extremity.
[2021-10-30 09:38] VITALS: BP 146/99; PULSE 86; RESP 16; TEMP 36.4; O2SAT 96; BMI 37.0
[2021-10-30 10:12] LABS: MANUAL DIFF FLAG NO
[2021-10-30 10:15] LABS: Basophils Percent Auto 0.7 % (0-2); Eosinophils Absolute Auto 0.9 X10*3/uL (0.0-0.4); Eosinophils Percent Auto 15.5 % (0-4); Hematocrit 39.9 % (37.0-47.0); Hemoglobin 13.6 g/dl (12.0-16.0); Imm Gran Abs Auto 0.02 X10*3/uL (0.00-0.03); Imm Gran Pct Auto 0.4 % (0.0-0.4); Mean Corpuscular HGB Conc 34.1 g/dl (31.0-35.0); Mean Corpuscular Hemoglobin 27.4 pg (27.0-33.0); Mean Corpuscular Volume 80.3 fL (80.0-98.0); Mean Platelet Volume 9.4 fL (9.4-12.3); Monocytes Absolute Auto 0.5 X10*3/uL (0.1-1.2); Monocytes Percent Auto 9.4 % (2-11); Neutrophils Absolute Auto 2.2 x10*3/uL (2.0-8.3); Platelet Count 236 X10*3/uL (160-400); Red Blood Count 4.97 X10*6/uL (4.20-5.50); Red Cell Distribution Width 13.2 % (11.0-16.0); White Blood Count 5.7 X10*3/uL (4.8-10.8)
[2021-10-30 10:19] LABS: INTERNATIONAL NORM RATIO 1.1 (0.9-1.1); Prothrombin Time 12.3 SEC (9.9-13.0)
[2021-10-30 10:36] LABS: Alanine Aminotransferase 22 U/L (0-31); Albumin Level 3.8 g/dL (3.5-5.0); Alkaline Phosphatase 85 U/L (39-117); Anion Gap 10 (12-20); Aspartate Amino Transferase 19 U/L (5-31); Bilirubin Total 0.9 mg/dL (0.0-1.0); Blood Urea Nitrogen 6 mg/dL (9-16); Calcium 9.1 mg/dL (8.4-10.2); Carbon Dioxide 27 mmol/L (22-29); Chloride 106 mmol/L (96-108); Creatinine Clr Calc Pharmacy 81.8; Estimated Glomerular Filt Rate > 60; Glucose Random 155 mg/dL (60-115); Potassium 3.6 mmol/L (3.3-5.1); Sodium 139 mmol/L (135-145); Total Protein 6.8 g/dL (6.5-8.0)
[2021-10-30 10:42] LABS: B Type Natriuretic Peptide 11 pg/mL (<100)
--- NOTE | 2021-10-30 11:20 | ED.EXTPRO ---
HPI - Extremity Problem General Chief complaint: Extremity Injury, Lower Stated complaint: Knee & ankle pain Time Seen by Provider: 10/30/21 09:39 Source: patient and family Mode of arrival: ambulatory Limitations: no limitations History of Present Illness HPI Narrative: 46-year-old female with a past medical history of hypertension, migraine headaches, asthma presenting to the ED with multiple complaints which include atraumatic right knee pain/swelling and atraumatic bilateral ankle pain/swelling for the past week and a half. She also reports a separate complaint reports over the past few days she has also developed some nasal congestion/rhinorrhea with a dry cough and some wheezing which she reports is much better after some treatments at home. She denies any fevers, chills, dizziness, headaches, neck pain/stiffness, trouble swallowing or breathing, dyspnea on exertion, orthopnea, chest pain, nausea/vomiting/diarrhea constipation, back pain, lower extremity edema, palpitations, paresthesias, rashes, recent travel, history of PVD disease, recent immobilization or surgery, recent illness or history of gout, sick contacts or any other symptoms complaints or concerns at this time. MD Complaint: joint swelling and joint pain Onset (ago): week(s) (-08/02) Pain Consistency: constant Location: left, right, lower extremity, knee (right knee and biateral ankles) and other (And left ankle) Severity scale (1-10): 8 Quality: aching and constant Radiation: distal Relieving factors: nothing Exacerbating factors: range of motion, weight bearing, walking and palpation Associated symptoms: other (Patient reports a separate complaint reports that her asthma has been acting up she has developed of dry cough with nasal congestion and wheezing although is much better after doing treatments at home) Related Data Previous Rx's Medication Instructions Recorded cyclobenzaprine 5 mg tablet 5 mg PO TID PRN #14 tab 10/12/20 albuterol sulfate 0.63 mg/3 mL 0.63 mg (3 mL) INHALATION QID PRN 10/30/21 solution for nebulization #75 ml albuterol sulfate 90 mcg/actuation 1 inh INHALATION QID PRN #8.5 g 10/30/21 aerosol inhaler azithromycin 250 mg tablet See Rx Instructions PO .COMPLEX #6 10/30/21 tab cyclobenzaprine 10 mg tablet 10 mg PO Q8H PRN #14 tab 10/30/21 prednisone 20 mg tablet 40 mg PO DAILY 5 Days #10 tab 10/30/21 tramadol 50 mg tablet 50 mg PO Q8H PRN #14 tab 10/30/21 Allergies Allergy/AdvReac Type Severity Reaction Status Date / Time aspirin [ASA] Allergy Unknown UNKNOWN Verified 06/11/21 11:48 Penicillins [PENICILLINS] Allergy Unknown UNKNOWN Verified 06/11/21 11:48 Review of Systems Review of Systems: Constitutional : No Weight loss, No Fever, No Chills, No Night Sweats, No Fatigue, No Malaise ENT/Mouth : No Hearing loss, No Ear Pain, No Nasal Congestion, No Sinus Pain, No Hoarseness, No sore throat, No Rhinorrhea, No Swallowing Difficulty Eyes: No Eye Pain, No Swelling, No Redness, No Foreign Body, No Discharge, No Vision Changes Cardiovascular : No Chest Pain, No SOB, No Dyspnea on Exertion, No Orthopnea, No Edema, No Palpitations Respiratory : + Cough with wheezing, No Sputum, No Smoke Exposure, No Dyspnea Gastrointestinal : No Nausea, No Vomiting, No Diarrhea, No Constipation, No abdominal Pain, No Hematochezia, No Melena Genitourinary : no irregular bleeding, No Dysuria, No Urinary Frequency, No Hematuria, No Urinary Incontinence, No Urgency, No Flank Pain, No Urinary Flow Changes, No Hesitancy Musculoskeletal : + bilateral knee and left ankle joint pain, No Myalgias, No Joint Swelling Skin : No Skin Lesions, No rash Neuro : No Weakness, No Numbness, No Paresthesias, No Loss of Consciousness, No Dizziness, No Headache Psych : No Anxiety/Panic, No Depression, No SI/HI/AH/VH, No Social Issues, Heme/Lymph: No Bruising, No Bleeding,No Lymphadenopathy Endocrine : No Polyuria, No Polydipsia, No Temperature Intolerance Yes all other systems are reviewed and are negative [facility] Past Medical History Attestation statement: The following information was validated with the patient. Medical History Asthma Head ache HTN (hypertension) Social History Social History Alcohol intake: never Advance Directives: No Patient : No Physical Exam Vital Signs: Vital Signs: Last Vital Signs Temp 97.5 F 10/30/21 09:38 Pulse 86 10/30/21 09:38 Resp 16 10/30/21 09:38 BP 146/99 H 10/30/21 09:38 Pulse Ox 96 10/30/21 09:38 BMI result Body Mass Index 37.0 vital signs have been reviewed as normal and appeared to be correct. Blood pressure 146/99. Heart rate normal. Respiration rate normal. Temperature normal. Oxygen saturation normal. Appearance: Alert. Oriented X3. No acute distress. Head: Normal external exam. Normocephalic. Atraumatic. Eyes: PERRLA. EOMI. Conjunctiva and sclera normal. Eyelids normal. ENT: Pharynx normal. Uvula midline. Moist mucous membranes. Normal voice. No trismus noted. No drooling noted. No muffled voice noted. Neck: Normal inspection. Neck supple. FROM. No adenopathy. Thyroid Normal. No tracheal deviation noted. No crepitus is noted. No meningeal signs. No neck mass noted. No signs of trauma noted. CVS: Normal heart rate and rhythm. Heart sound normal. Pulses normal throughout. No murmurs/rales/gallops. Respiratory: No respiratory distress. Painless inspiration. Breath sounds normal. No wheezes/rales/rhonchi noted. Chest nontender. No crepitus is noted. No signs of trauma noted. No accessory muscle usage noted or decreased air movement noted. No signs of trauma. Abdomen: Soft and nontender. Bowel sounds normal in all 4 quadrants. No distention noted. No organomegaly noted. No visible injury noted. Back: Full range of motion noted. Nontender. Skin: Skin warm and dry. Normal skin color. Normal skin turgor. No rashes/lesions/lacerations noted. Extremities: Patient with tenderness palpation to right knee at the patellar aspect although she has full range of motion of right knee no obvious ligamentous or tendon injury noted. This is not consistent with septic joint. There is no erythema/edema/streaking/induration or fluctuance or any signs of infection. She has a normal steady gait. She has mild tenderness palpation to bilateral ankles. She does have mild soft tissue swelling to the right lateral malleolus of the right ankle. No obvious ligamentous or tendon injury noted to bilateral ankles. Achilles tendons are intact negative Reyes's test. No obvious signs of infection not consistent with septic joint to bilateral ankles. She does have mild tenderness palpation to the right calf. Otherwise no no lower extremity pitting edema. No calf tenderness to the left leg. Otherwise all other extremities exhibit normal range of motion and nontender. Neuro: Oriented X 3. No motor deficit. No sensory deficit. Reflexes normal. Normal steady gait. No focal neuro deficits noted. CN's II-XII intact bilaterally? Vascular: + radial pulses/+ 2 distal pedal pulses/+2 dorsalis pedis b/l. Normal cap refill. No cyanosis noted to upper extremity nails and lower extremity toes nails. Course Course Course Narrative: 10am - 46-year-old female with a past medical history of hypertension, migraine headaches, asthma presenting to the ED with multiple complaints which include atraumatic right knee pain/swelling and atraumatic bilateral ankle pain/swelling for the past week and a half. She also reports a separate complaint reports over the past few days she has also developed some nasal congestion/rhinorrhea with a dry cough and some wheezing which she reports is much better after some treatments at home. Plan: Labs, chest x-ray, venous duplex ultrasound of right lower extremity, x-ray of right knee and x-ray of bilateral ankles then re-evaluate. Reevaluation(s) Reevaluation #1: All labs within normal limits. Venous duplex ultrasound of right lower extremity negative for DVT. Chest x-ray within normal limits no acute processes are noted. Bilateral ankle x-rays revealed chronic changes no acute processes noted. And right knee x-ray within normal limits no acute processes noted. Patient most likely asthma exacerbation although no wheezing on exam therefore no treatment needed. Will DC home with symptomatic treatment for her asthma. Will also DC home with symptomatic treatment for her muscular skeletal pain and instructions return if any new or worsening symptoms to follow up with primary care provider. Patient understands agrees with this plan. Time: 12:34 MDM - Extremity (Nontraumatic) Medical Records Attestation: I reviewed the patient's medical records. Lab Data Attestation: I reviewed the patient's lab results. Result diagrams: 10/30/21 10:09 10/30/21 10:09 Labs: Lab Results 10/30/21 10/30/21 10/30/21 Range/Units 10:09 10:09 10:09 WBC 5.7 (4.8-10.8) X10*3/uL RBC 4.97 (4.20-5.50) X10*6/uL Hgb 13.6 (12.0-16.0) g/dl Hct 39.9 (37.0-47.0) % MCV 80.3 (80.0-98.0) fL MCH 27.4 (27.0-33.0) pg MCHC 34.1 (31.0-35.0) g/dl RDW 13.2 (11.0-16.0) % Plt Count 236 (160-400) X10*3/uL MPV 9.4 (9.4-12.3) fL Immature Gran % (Auto) 0.4 (0.0-0.4) % Neut % (Auto) 39.0 L (45-73) % Lymph % (Auto) 35.0 (20-40) % Yancey % (Auto) 9.4 (2-11) % Eos % (Auto) 15.5 H (0-4) % Baso % (Auto) 0.7 (0-2) % Lymph # (Auto) 2.0 (1.2-4.9) X10*3/uL Yancey # (Auto) 0.5 (0.1-1.2) X10*3/uL Eos # (Auto) 0.9 H (0.0-0.4) X10*3/uL Baso # (Auto) 0.0 (0.0-0.2) X10*3/uL Abs Immat Gran (auto) 0.02 (0.00-0.03) X10*3/uL Absolute Neuts (auto) 2.2 (2.0-8.3) x10*3/uL Absolute Nucleated RBC 0.000 (0.0-0.012) X10*3/uL Nucleated RBC % (auto) 0.0 (0.0-0.2) /100WBC PT 12.3 (9.9-13.0) SEC INR 1.1 (0.9-1.1) Sodium 139 (135-145) mmol/L Potassium 3.6 (3.3-5.1) mmol/L Chloride 106 (96-108) mmol/L Carbon Dioxide 27 (22-29) mmol/L Anion Gap 10 L (12-20) BUN 6 L (9-16) mg/dL Creatinine 0.82 (0.5-1.4) mg/dL Estim Creat Clear Calc 81.8 Estimated GFR > 60 Random Glucose 155 H (60-115) mg/dL Calcium 9.1 (8.4-10.2) mg/dL Magnesium 2.0 (1.6-2.6) mg/dL Total Bilirubin 0.9 (0.0-1.0) mg/dL AST 19 (5-31) U/L ALT 22 (0-31) U/L Alkaline Phosphatase 85 (39-117) U/L B-Natriuretic Peptide (<100) pg/mL Total Protein 6.8 (6.5-8.0) g/dL Albumin 3.8 (3.5-5.0) g/dL 10/30/21 Range/Units 10:09 WBC (4.8-10.8) X10*3/uL RBC (4.20-5.50) X10*6/uL Hgb (12.0-16.0) g/dl Hct (37.0-47.0) % MCV (80.0-98.0) fL MCH (27.0-33.0) pg MCHC (31.0-35.0) g/dl RDW (11.0-16.0) % Plt Count (160-400) X10*3/uL MPV (9.4-12.3) fL Immature Gran % (Auto) (0.0-0.4) % Neut % (Auto) (45-73) % Lymph % (Auto) (20-40) % Yancey % (Auto) (2-11) % Eos % (Auto) (0-4) % Baso % (Auto) (0-2) % Lymph # (Auto) (1.2-4.9) X10*3/uL Yancey # (Auto) (0.1-1.2) X10*3/uL Eos # (Auto) (0.0-0.4) X10*3/uL Baso # (Auto) (0.0-0.2) X10*3/uL Abs Immat Gran (auto) (0.00-0.03) X10*3/uL Absolute Neuts (auto) (2.0-8.3) x10*3/uL Absolute Nucleated RBC (0.0-0.012) X10*3/uL Nucleated RBC % (auto) (0.0-0.2) /100WBC PT (9.9-13.0) SEC INR (0.9-1.1) Sodium (135-145) mmol/L Potassium (3.3-5.1) mmol/L Chloride (96-108) mmol/L Carbon Dioxide (22-29) mmol/L Anion Gap (12-20) BUN (9-16) mg/dL Creatinine (0.5-1.4) mg/dL Estim Creat Clear Calc Estimated GFR Random Glucose (60-115) mg/dL Calcium (8.4-10.2) mg/dL Magnesium (1.6-2.6) mg/dL Total Bilirubin (0.0-1.0) mg/dL AST (5-31) U/L ALT (0-31) U/L Alkaline Phosphatase (39-117) U/L B-Natriuretic Peptide 11 (<100) pg/mL Total Protein (6.5-8.0) g/dL Albumin (3.5-5.0) g/dL Imaging Data Chest x-ray/bilateral ankle x-rays and right knee x-ray: Attestation: I personally reviewed and interpreted this imaging study as follows: Radiologist's impression: FINDINGS: Left ankle: There is bimalleolar soft tissue swelling. No visible fracture, dislocation or subluxation seen. The ankle mortise and subtalar joints are normal. Small calcaneal enthesophyte. Right knee: The tricompartment joint space is maintained normal. No visible acute fracture, dislocation or bony erosive changes. No abnormal suprapatellar joint effusion. There is prominent anterior tibial tubercle. Right ankle: There is a small retrocalcaneal enthesophyte. The ankle mortise and subtalar joints are normal. There is no visible acute fracture, dislocation or lytic process. There is mild soft tissue swelling lateral ankle. CHEST: The lungs are well-expanded and clear. The heart size and pulmonary vascularity is normal. No gross bony abnormality seen.. XR/XR knee RT 4V IMPRESSION: Small retrocalcaneal enthesophytes right ankle and calcaneal heel enthesophyte left ankle. No acute fracture or dislocation seen in either ankle. There is bimalleolar soft tissue swelling left ankle and lateral malleolar region right ankle. ? Unremarkable right knee exam. ? Unremarkable chest exam. Discharge Plan Discharge Clinical Impression: Asthma, Muscle strain of ankle, Strain of right knee Patient Disposition: Home, Self-Care Instructions: Asthma (DC), Ankle Strain (ED) Prescriptions: New tramadol 50 mg tablet 50 mg PO Q8H PRN (Reason: pain) Qty: 14 0RF Rx Instructions: May partially fill upon patient request cyclobenzaprine 10 mg tablet 10 mg PO Q8H PRN (Reason: Muscle spasm) Qty: 14 0RF azithromycin 250 mg tablet See Rx Instructions PO .COMPLEX Qty: 6 0RF Rx Instructions: take 500 mg today (day 1), then 250 mg for 4 days (days 2-5) prednisone 20 mg tablet 40 mg PO DAILY 5 Days Qty: 10 0RF albuterol sulfate 0.63 mg/3 mL solution for nebulization 0.63 mg inhalation QID PRN (Reason: shortness of breath or wheezing) Qty: 75 0RF albuterol sulfate 90 mcg/actuation HFA aerosol inhaler 1 inh inhalation QID PRN (Reason: shortness of breath or wheezing) Qty: 8.5 0RF No Action cyclobenzaprine 5 mg tablet 5 mg PO TID PRN (Reason: muscle spasm) Qty: 14 0RF Rx Instructions: This medication will cause drowsiness, no driving for 8 hours after taking Referrals: [facility] [Primary Care Provider] - 2 days Print Language: Amharic
== END 2021-10-30 12:48 | disposition home or self-care (01) ==
PROVIDERS: Physician Assistant Medical; Emergency Provider Emergency Medicine
DX: J45.909 Unspecified asthma, uncomplicated (principal); S96.912A Strain of unspecified muscle and tendon at ankle and foot level, left foot, initial encounter; S96.911A Strain of unspecified muscle and tendon at ankle and foot level, right foot, initial encounter; S86.911A Strain of unspecified muscle(s) and tendon(s) at lower leg level, right leg, initial encounter; X58.XXXA Exposure to other specified factors, initial encounter; M25.561 Pain in right knee; M25.572 Pain in left ankle and joints of left foot; M25.571 Pain in right ankle and joints of right foot; I10 Essential (primary) hypertension; Y93.9 Activity, unspecified; Y92.9 Unspecified place or not applicable; Y99.9 Unspecified external cause status; Z79.899 Other long term (current) drug therapy
CPT/HCPCS: 36415; 71046; 73564; 73610; 80053; 83735; 83880; 85025; 85610; 93971; 99283; 99284

== ENCOUNTER 2022-06-09 07:33 | Emergency (ER) | payer MEDICAID, SELFPAY ==
[2022-06-09 08:04] VITALS: BP 182/95; PULSE 88; RESP 16; TEMP 37.1; O2SAT 97; BMI 35.2
[2022-06-09 09:11] LABS: Influenza A PCR NEGATIVE (Negative); Influenza B PCR NEGATIVE (Negative); Resp Syncy Virus RNA Qual PCR NEGATIVE (Negative); SARS COV2 PCR INHOUSE NEGATIVE (Negative)
--- NOTE | 2022-06-09 09:13 | ED.GENADULT ---
HPI - General Adult General Chief complaint: General Medical Stated complaint: Flu Symptoms Time Seen by Provider: 06/09/22 08:39 Source: patient Mode of arrival: ambulatory Limitations: no limitations History of Present Illness HPI narrative: 46-year-old female history of asthma presents to ED for coughing, body aches, fever, chills, sore throat the past couple of days. Patient states she lives alone. Patient denies any chest pain, shortness of breath, leg swelling, coughing up blood, or pleurisy. Related Data Previous Rx's Medication Instructions Recorded cyclobenzaprine 5 mg tablet 5 mg PO TID PRN muscle spasm #14 10/12/20 tabs albuterol sulfate 0.63 mg/3 mL 0.63 mg (3 mL) inhalation QID PRN 10/30/21 solution for nebulization shortness of breath or wheezing #75 mL albuterol sulfate 90 mcg/actuation 1 inh inhalation QID PRN shortness 10/30/21 aerosol inhaler of breath or wheezing #8.5 grams azithromycin 250 mg tablet See Rx Instructions PO .COMPLEX #6 10/30/21 tabs cyclobenzaprine 10 mg tablet 10 mg PO Q8H PRN Muscle spasm #14 10/30/21 tabs nebulizers (AeroEclipse II #1 ea 10/30/21 Nebulizer) prednisone 20 mg tablet 40 mg PO DAILY rash 5 days #10 tabs 10/30/21 tramadol 50 mg tablet 50 mg PO Q8H PRN pain #14 tabs 10/30/21 albuterol sulfate 90 mcg/actuation 2 puff inhalation Q4-6H PRN 06/09/22 aerosol inhaler shortness of breath or wheezing #8.5 grams benzonatate 100 mg capsule 100 mg PO TID PRN cough 5 days #21 06/09/22 caps prednisone 20 mg tablet 40 mg PO DAILY 5 days #10 tabs 06/09/22 Allergies Allergy/AdvReac Type Severity Reaction Status Date / Time aspirin [ASA] Allergy Unknown UNKNOWN Verified 02/19/22 12:32 Penicillins [PENICILLINS] Allergy Unknown UNKNOWN Verified 02/19/22 12:32 Review of Systems Review of Systems: coughing, bodyaches, fever, chills, sore throat Yes all other systems are reviewed and are negative PMFSH Past Medical History Medical History Asthma Head ache HTN (hypertension) Social History Social History (System 02/19/22 @ 12:32 by Veronica Guzman) Alcohol intake: never Advance Directives: No Advance Directives Information Provided: Yes Physical Exam ED Vital Signs: Vital Signs - 24 hr 06/09/22 08:04 Temperature 98.8 F Pulse Rate 88 Respiratory Rate 16 Blood Pressure 182/95 H Pulse Oximetry 97 Oxygen Delivery Method Room Air BMI result Body Mass Index 35.2 Const General: cooperative, healthy appearing, comfortable, no acute distress, well developed, alert, awake and Physically active Orientation/consciousness: oriented to time and patient oriented x3 HENMT Head: Yes normal to inspection, Yes No palpable skull fracture present, Yes normocephalic, Yes atraumatic and Yes abrasion Throat: Yes posterior oropharynx normal, Yes tonsils normal and Yes uvula midline Eyes General: appearance normal, both eyes and all related structures Neck Neck: Yes normal visual inspection, Yes full ROM, Yes no lymphadenopathy, Yes no meningeal signs, Yes trachea midline, Yes supple, No anterior neck swelling and No tender Chest Chest palpation & inspection: normal inspection of the chest and normal palpation of entire chest wall Resp Effort & Inspection: normal respiratory effort and able to speak in complete sentences Auscultation: clear to auscultation bilaterally Cardio Jugular venous distension: no JVD Heart sounds: S1 normal heart sound present and S2 normal heart sound present GI Inspection: Yes normal to inspection and No abdominal wall ecchymosis Palpation (GI): Soft to palpation, not firm, nontender, no guarding and not rigid General: No CVA tenderness and Yes no CVA tenderness Back/Spine/Pelvis Back: no CVA tenderness, No CVA tenderness and No back tenderness Skin General skin exam: no rashes or lesions noted and elasticity normal Neuro General: oriented to time, patient oriented x3, gait normal, tone normal and no meningeal signs Cranial nerves: Yes CN's II-XII intact bilaterally Extrem General: Yes normal to inspection and Yes full ROM Psych Appearance: grossly normal, well kempt and not disheveled Course Course Course Narrative: Patient well-appearing. SARS swab ordered. Reevaluation(s) Reevaluation #1: COVID, influenza, RSV came back negative. Patient states he has had asthma with no albuterol pump. Will prescribe albuterol inhaler Time: 09:16 URI Medical Decision Making Lab Data Labs: Lab Results 06/09/22 Range/Units 07:58 Influenza Type A (PCR) NEGATIVE (Negative) Influenza Type B (PCR) NEGATIVE (Negative) RSV RNA Qual (PCR) NEGATIVE (Negative) SARS-CoV-2 RNA (RT-PCR) NEGATIVE (Negative) Discharge Plan Discharge Clinical Impression: URI (upper respiratory infection) Patient Disposition: Home, Self-Care Instructions: Upper Respiratory Infection (ED), Asthma (ED) Additional Instructions: Your COVID RSV swab came back negative. Her influenza swab also came back negative. Will be discharged with albuterol inhaler and Tessalon Perles for cough. Please follow-up with your primary care provider. Return to ED for any chest pain, shortness of breath, weakness, dizziness, drooling, chest pain on inspiration, leg swelling, calf pain, coughing up blood, fever, chills, change in voice, any other concerning symptoms. Prescriptions: New albuterol sulfate 90 mcg/actuation HFA aerosol inhaler 2 puff inhalation Q4-6H PRN (Reason: shortness of breath or wheezing) Qty: 8.5 0RF benzonatate 100 mg capsule 100 mg PO TID PRN (Reason: cough) 5 Days Qty: 21 0RF prednisone 20 mg tablet 40 mg PO DAILY 5 Days Qty: 10 0RF No Action cyclobenzaprine 5 mg tablet 5 mg PO TID PRN (Reason: muscle spasm) Qty: 14 0RF Rx Instructions: This medication will cause drowsiness, no driving for 8 hours after taking tramadol 50 mg tablet 50 mg PO Q8H PRN (Reason: pain) Qty: 14 0RF Rx Instructions: May partially fill upon patient request cyclobenzaprine 10 mg tablet 10 mg PO Q8H PRN (Reason: Muscle spasm) Qty: 14 0RF azithromycin 250 mg tablet See Rx Instructions PO .COMPLEX Qty: 6 0RF Rx Instructions: take 500 mg today (day 1), then 250 mg for 4 days (days 2-5) prednisone 20 mg tablet 40 mg PO DAILY 5 Days Qty: 10 0RF albuterol sulfate 0.63 mg/3 mL solution for nebulization 0.63 mg inhalation QID PRN (Reason: shortness of breath or wheezing) Qty: 75 0RF albuterol sulfate 90 mcg/actuation HFA aerosol inhaler 1 inh inhalation QID PRN (Reason: shortness of breath or wheezing) Qty: 8.5 0RF (DME) AeroEclipse II Nebulizer Misc See Rx Instructions .ROUTE .MEDSUPPLY Qty: 1 0RF Rx Instructions: As directed Stand Alone Forms: Work/School Release Interventions: ED Discharge Assessment Last Done: 06/09/22 09:40 Discharge Date/Time: 06/09/22 09:41 Print Language: Montserratian
== END 2022-06-09 09:41 | disposition home or self-care (01) ==
PROVIDERS: Emergency Provider Emergency Medicine
DX: J06.9 Acute upper respiratory infection, unspecified (principal); R05.9 Cough, unspecified; M79.10 Myalgia, unspecified site; R50.9 Fever, unspecified; Z20.822 Contact with and (suspected) exposure to COVID-19; Z79.899 Other long term (current) drug therapy
CPT/HCPCS: 0241U; 99283

== ENCOUNTER 2022-09-26 12:57 | Emergency (ER) | payer MEDICAID, SELFPAY ==
--- NOTE | 2022-09-26 | ECG_ITS ---
Test Reason : Chest Pain Blood Pressure : / mmHG Vent. Rate : 081 BPM Atrial Rate : 081 BPM P-R Int : 146 ms QRS Dur : 082 ms QT Int : 376 ms P-R-T Axes : 034 -13 -05 degrees QTc Int : 436 ms Normal sinus rhythm Nonspecific ST and T wave abnormality Abnormal ECG When compared with ECG of 20-AUG-2021 09:36, No significant change was found Referred By: Generic ED Physician Electronically Signed By:LEV SEALS MD
--- NOTE | ~2022-09-26 | XR_ITS ---
EXAMINATION: XR chest 1V CLINICAL INFORMATION: Chest pain COMPARISON: None TECHNIQUE: XR chest 1V Tubes and lines: None Lungs and pleura: Both lungs are clear. Heart and mediastinum: The mediastinum is within normal limits.. Bones/soft tissue: Skeletal structures included are normal for patient's age. XR/XR chest 1V IMPRESSION: No radiographic evidence of acute cardiopulmonary disease.
[2022-09-26 13:04] VITALS: BP 162/97; PULSE 83; RESP 20; TEMP 36.6; O2SAT 98; BMI 37.0
[2022-09-26 13:31] LABS: MANUAL DIFF FLAG NO
[2022-09-26 13:37] LABS: Basophils Percent Auto 0.4 % (0-2); Eosinophils Absolute Auto 0.6 X10*3/uL (0.0-0.4); Eosinophils Percent Auto 8.3 % (0-4); Hematocrit 38.9 % (37.0-47.0); Hemoglobin 13.5 g/dl (12.0-16.0); Imm Gran Abs Auto 0.01 X10*3/uL (0.00-0.03); Imm Gran Pct Auto 0.1 % (0.0-0.4); Lymphocytes Absolute Auto 1.8 X10*3/uL (1.2-4.9); Mean Corpuscular HGB Conc 34.7 g/dl (31.0-35.0); Mean Corpuscular Hemoglobin 26.8 pg (27.0-33.0); Mean Corpuscular Volume 77.3 fL (80.0-98.0); Mean Platelet Volume 9.6 fL (9.4-12.3); Monocytes Absolute Auto 0.6 X10*3/uL (0.1-1.2); Monocytes Percent Auto 8.6 % (2-11); Neutrophils Absolute Auto 3.8 x10*3/uL (2.0-8.3); Neutrophils Percent Auto 56.6 % (45-73); Platelet Count 272 X10*3/uL (160-400); Red Blood Count 5.03 X10*6/uL (4.20-5.50); Red Cell Distribution Width 12.9 % (11.0-16.0); White Blood Count 6.8 X10*3/uL (4.8-10.8)
[2022-09-26 13:52] LABS: Alanine Aminotransferase 23 U/L (0-31); Albumin Level 3.8 g/dL (3.5-5.0); Alkaline Phosphatase 104 U/L (39-117); Anion Gap 15 (12-20); Aspartate Amino Transferase 18 U/L (5-31); Bilirubin Total 1.1 mg/dL (0.0-1.0); Blood Urea Nitrogen 7 mg/dL (9-16); Calcium 9.1 mg/dL (8.4-10.2); Carbon Dioxide 25 mmol/L (22-29); Chloride 106 mmol/L (96-108); Creatinine Clr Calc Pharmacy 69.8; Estimated Glomerular Filt Rate > 60; Glucose Random 220 mg/dL (60-115); Potassium 3.6 mmol/L (3.3-5.1); Sodium 142 mmol/L (135-145); Total Protein 7.1 g/dL (6.5-8.0)
[2022-09-26 13:56] LABS: Troponin-I High Sensitivity 9.6 ng/L (<3.5-17.0)
--- NOTE | 2022-09-26 15:01 | ED_ITS ---
HPI - Chest Pain General Chief Complaint: Chest Pain Stated Complaint: Chest Pain/ left neck/arm pain Time Seen by Provider: 09/26/22 14:58 Source: patient Mode of arrival: ambulatory Limitations: no limitations History of Present Illness HPI narrative: Patient with left neck pain that radiated down into her arm and chest. The neck pain started first. Then the patient got nervous because her blood pressure has been running high. The pain started 8 hours ago. MD complaint: chest pain Related Data Previous Rx's Medication Instructions Recorded cyclobenzaprine 5 mg tablet 5 mg PO TID PRN muscle spasm #14 10/12/20 tabs albuterol sulfate 0.63 mg/3 mL 0.63 mg (3 mL) inhalation QID PRN 10/30/21 solution for nebulization shortness of breath or wheezing #75 mL albuterol sulfate 90 mcg/actuation 1 inh inhalation QID PRN shortness 10/30/21 aerosol inhaler of breath or wheezing #8.5 grams azithromycin 250 mg tablet See Rx Instructions PO .COMPLEX #6 10/30/21 tabs cyclobenzaprine 10 mg tablet 10 mg PO Q8H PRN Muscle spasm #14 10/30/21 tabs nebulizers (AeroEclipse II #1 ea 10/30/21 Nebulizer) prednisone 20 mg tablet 40 mg PO DAILY rash 5 days #10 tabs 10/30/21 tramadol 50 mg tablet 50 mg PO Q8H PRN pain #14 tabs 10/30/21 albuterol sulfate 90 mcg/actuation 2 puff inhalation Q4-6H PRN 06/09/22 aerosol inhaler shortness of breath or wheezing #8.5 grams benzonatate 100 mg capsule 100 mg PO TID PRN cough 5 days #21 06/09/22 caps prednisone 20 mg tablet 40 mg PO DAILY 5 days #10 tabs 06/09/22 cyclobenzaprine 10 mg tablet 10 mg PO TID #10 tabs 09/26/22 Allergies Allergy/AdvReac Type Severity Reaction Status Date / Time aspirin [ASA] Allergy Unknown UNKNOWN Verified 02/19/22 12:32 Penicillins [PENICILLINS] Allergy Unknown UNKNOWN Verified 02/19/22 12:32 Review of Systems Review of Systems: Yes all other systems are reviewed and are negative ENT: Comments: left neck pain Cardiovascular: Cardiovascular: Reports chest pain Musculoskeletal: Comments: neck and shoulder pain Neurologic: Denies Sensory deficit (Neuro) [facility] Past Medical History Medical History Asthma Head ache HTN (hypertension) Social History Social History Alcohol intake: never Advance Directives: No Advance Directives Information Provided: Yes Physical Exam Vital Signs: Vital Signs: Last Vital Signs Temp 97.8 F 09/26/22 15:15 Pulse 74 09/26/22 15:15 Resp 17 09/26/22 15:15 BP 151/90 H 09/26/22 15:15 Pulse Ox 97 09/26/22 15:15 O2 Del Method 09/26/22 15:15 BMI result Body Mass Index 37.0 Const: General: healthy appearing Nutritional Appearance: average body habitus Orientation/consciousness: oriented to person and patient oriented x3 Limitations: no limitations HEENT: Head: Yes normal to inspection Ears: external ears normal General nose exam: Normal external nose present Mouth: Normal oral and palatal mucos a present and oropharynx normal Throat: Yes posterior oropharynx normal Eyes: General: appearance normal, both eyes and all related structures Neck: Other: supple, left sternocleidomastoid tenderness, left shoulder tenderness Chest: Chest palpation & inspection: normal inspection of the chest Resp: Auscultation: clear to auscultation bilaterally Cardio: Jugular venous distension: no JVD Rate: regular rate Rhythm: regular rhythm Heart sounds: S1 normal heart sound present and S2 normal heart sound present GI: Inspection: Yes normal to inspection Palpation (GI): Soft to palpation, nontender and No hepatosplenomegaly present Auscultation: normal bowel sounds : General: Yes no CVA tenderness Back/Spine/Pelvis: Back: no CVA tenderness Skin: General skin exam: no rashes or lesions noted Neuro: General: oriented to person and patient oriented x3 Cranial nerves: Yes CN's II-XII intact bilaterally Motor exam (neuro): 5/5 motor strength present throughout Sensory Exam: No Sensory deficit (Neuro) Extrem: General: Yes normal to inspection Psych: Appearance: grossly normal Course Reevaluation(s) Reevaluation #1: EKG showed changes with flip ts that was seen prior in past years likely do to HTN, pain is likely from neck into shoulder will dc home Time: 17:11 Medications Administered Discontinued Medications Generic Name Dose Route Start Last Admin Trade Name Leonarda PRN Reason Stop Dose Admin Acetaminophen 975 mg 09/26/22 15:11 09/26/22 15:22 Acetaminophen 325 Mg Tablet PO 09/26/22 15:12 975 mg ONCE ONE Administration Amlodipine Besylate 5 mg 09/26/22 15:12 09/26/22 15:23 Amlodipine Besylate 5 Mg Tablet PO 09/26/22 15:13 5 mg ONCE ONE Administration Protocol Medical Decision Making Differential Diagnosis Differential Diagnoses: The differential diagnosis associated with the presentation includes (acute coronary syndrome, EKG changes, HTN, neck spasm, costrochondritis) Admission/Observation Consideration of admission/observation: Escalation of care including admission/observation considered (in a patient with chest pain, EKG changes, and HTN admission was considered) Lab Data MDM Lab Attestation statement: I reviewed the patient's lab results. 09/26/22 13:12 09/26/22 13:12 Labs: Lab Results 09/26/22 09/26/22 09/26/22 Range/Units 13:12 13:12 13:12 WBC 6.8 (4.8-10.8) X10*3/uL RBC 5.03 (4.20-5.50) X10*6/uL Hgb 13.5 (12.0-16.0) g/dl Hct 38.9 (37.0-47.0) % MCV 77.3 L (80.0-98.0) fL MCH 26.8 L (27.0-33.0) pg MCHC 34.7 (31.0-35.0) g/dl RDW 12.9 (11.0-16.0) % Plt Count 272 (160-400) X10*3/uL MPV 9.6 (9.4-12.3) fL Immature Gran % (Auto) 0.1 (0.0-0.4) % Neut % (Auto) 56.6 (45-73) % Lymph % (Auto) 26.0 (20-40) % [place] % (Auto) 8.6 (2-11) % Eos % (Auto) 8.3 H (0-4) % Baso % (Auto) 0.4 (0-2) % Lymph # (Auto) 1.8 (1.2-4.9) X10*3/uL [place] # (Auto) 0.6 (0.1-1.2) X10*3/uL Eos # (Auto) 0.6 H (0.0-0.4) X10*3/uL Baso # (Auto) 0.0 (0.0-0.2) X10*3/uL Abs Immat Gran (auto) 0.01 (0.00-0.03) X10*3/uL Absolute Neuts (auto) 3.8 (2.0-8.3) x10*3/uL Absolute Nucleated RBC 0.000 (0.0-0.012) X10*3/uL Nucleated RBC % (auto) 0.0 (0.0-0.2) /100WBC PT 12.0 (10.0-13.1) SEC INR 1.0 (0.9-1.1) Sodium 142 (135-145) mmol/L Potassium 3.6 (3.3-5.1) mmol/L Chloride 106 (96-108) mmol/L Carbon Dioxide 25 (22-29) mmol/L Anion Gap 15 (12-20) BUN 7 L (9-16) mg/dL Creatinine 0.95 (0.5-1.4) mg/dL Estim Creat Clear Calc 69.8 Estimated GFR > 60 Random Glucose 220 H (60-115) mg/dL Calcium 9.1 (8.4-10.2) mg/dL Total Bilirubin 1.1 H (0.0-1.0) mg/dL AST 18 (5-31) U/L ALT 23 (0-31) U/L Alkaline Phosphatase 104 (39-117) U/L Troponin I High Sens (<3.5-17.0) ng/L Total Protein 7.1 (6.5-8.0) g/dL Albumin 3.8 (3.5-5.0) g/dL 09/26/22 09/26/22 Range/Units 13:12 15:21 WBC (4.8-10.8) X10*3/uL RBC (4.20-5.50) X10*6/uL Hgb (12.0-16.0) g/dl Hct (37.0-47.0) % MCV (80.0-98.0) fL MCH (27.0-33.0) pg MCHC (31.0-35.0) g/dl RDW (11.0-16.0) % Plt Count (160-400) X10*3/uL MPV (9.4-12.3) fL Immature Gran % (Auto) (0.0-0.4) % Neut % (Auto) (45-73) % Lymph % (Auto) (20-40) % [place] % (Auto) (2-11) % Eos % (Auto) (0-4) % Baso % (Auto) (0-2) % Lymph # (Auto) (1.2-4.9) X10*3/uL [place] # (Auto) (0.1-1.2) X10*3/uL Eos # (Auto) (0.0-0.4) X10*3/uL Baso # (Auto) (0.0-0.2) X10*3/uL Abs Immat Gran (auto) (0.00-0.03) X10*3/uL Absolute Neuts (auto) (2.0-8.3) x10*3/uL Absolute Nucleated RBC (0.0-0.012) X10*3/uL Nucleated RBC % (auto) (0.0-0.2) /100WBC PT (10.0-13.1) SEC INR (0.9-1.1) Sodium (135-145) mmol/L Potassium (3.3-5.1) mmol/L Chloride (96-108) mmol/L Carbon Dioxide (22-29) mmol/L Anion Gap (12-20) BUN (9-16) mg/dL Creatinine (0.5-1.4) mg/dL Estim Creat Clear Calc Estimated GFR Random Glucose (60-115) mg/dL Calcium (8.4-10.2) mg/dL Total Bilirubin (0.0-1.0) mg/dL AST (5-31) U/L ALT (0-31) U/L Alkaline Phosphatase (39-117) U/L Troponin I High Sens 9.6 10.5 (<3.5-17.0) ng/L Total Protein (6.5-8.0) g/dL Albumin (3.5-5.0) g/dL Independent Interpretation I performed an independent interpretation of an: EKG (sinus 80, flipped ts in V3-V4 which are old from previous) and Plain X-Ray (CXR no infiltrate) Discharge Plan Discharge Clinical Impression: Muscle spasms of neck, Chest pain Patient Disposition: Home, Self-Care Instructions: Muscle Spasm (ED), Acute Neck Pain (ED) Prescriptions: New cyclobenzaprine 10 mg tablet 10 mg PO TID Qty: 10 0RF No Action cyclobenzaprine 5 mg tablet 5 mg PO TID PRN (Reason: muscle spasm) Qty: 14 0RF Rx Instructions: This medication will cause drowsiness, no driving for 8 hours after taking albuterol sulfate 90 mcg/actuation HFA aerosol inhaler 2 puff inhalation Q4-6H PRN (Reason: shortness of breath or wheezing) Qty: 8.5 0RF benzonatate 100 mg capsule 100 mg PO TID PRN (Reason: cough) 5 Days Qty: 21 0RF prednisone 20 mg tablet 40 mg PO DAILY 5 Days Qty: 10 0RF tramadol 50 mg tablet 50 mg PO Q8H PRN (Reason: pain) Qty: 14 0RF Rx Instructions: May partially fill upon patient request cyclobenzaprine 10 mg tablet 10 mg PO Q8H PRN (Reason: Muscle spasm) Qty: 14 0RF azithromycin 250 mg tablet See Rx Instructions PO .COMPLEX Qty: 6 0RF Rx Instructions: take 500 mg today (day 1), then 250 mg for 4 days (days 2-5) prednisone 20 mg tablet 40 mg PO DAILY 5 Days Qty: 10 0RF albuterol sulfate 0.63 mg/3 mL solution for nebulization 0.63 mg inhalation QID PRN (Reason: shortness of breath or wheezing) Qty: 75 0RF albuterol sulfate 90 mcg/actuation HFA aerosol inhaler 1 inh inhalation QID PRN (Reason: shortness of breath or wheezing) Qty: 8.5 0RF (DME) AeroEclipse II Nebulizer Misc See Rx Instructions .ROUTE .MEDSUPPLY Qty: 1 0RF Rx Instructions: As directed Referrals: [facility] [Primary Care Provider] - 1 week
[2022-09-26 15:15] VITALS: BP 151/90; PULSE 74; RESP 17; TEMP 36.6; O2SAT 97
[2022-09-26] MEDS: Acetaminophen 325 MG TABLET 975 MG PO (15:22)
[2022-09-26] MEDS: amLODIPine Besylate 5 MG TABLET PO (15:23)
[2022-09-26 16:08] LABS: Troponin-I High Sensitivity 10.5 ng/L (<3.5-17.0)
== END 2022-09-26 17:35 | disposition home or self-care (01) ==
PROVIDERS: Emergency Provider Emergency Medicine
DX: R07.89 Other chest pain (principal); M54.2 Cervicalgia; M79.602 Pain in left arm; M62.838 Other muscle spasm; Z79.899 Other long term (current) drug therapy
CPT/HCPCS: 36415; 71045; 80053; 84484; 85025; 85610; 93005; 99284

== ENCOUNTER 2022-10-15 19:26 | Emergency (ER) | payer MEDICAID, SELFPAY ==
--- NOTE | ~2022-10-15 | CT_ITS ---
EXAMINATION: CT ABDOMEN AND PELVIS WITH CONTRAST CLINICAL INFORMATION: Fever COMPARISON: None available. TECHNIQUE: Multidetector volumetric images were obtained from the superior aspect of the liver through the pubic symphysis following administration 85 mL of Omnipaque 350 intravenous contrast. Sagittal and coronal reformatted images were obtained on the technologist's workstation. Oral contrast: No This CT examination was performed using dose optimization techniques as appropriate, variously including the following: *Automated exposure control *Adjustment of mA and/or kV according to patient size (this includes techniques or standardized protocols for targeted exams where dose is matched to indication/reason for exam; i.e. extremities or head) *Use of iterative reconstruction technique DLP: 730 mGy-cm FINDINGS: LUNG BASES: The visualized lung bases are unremarkable. LIVER, GALLBLADDER, AND BILIARY TREE: The liver is normal in size, shape, and attenuation. No focal hepatic lesion or biliary ductal dilatation is present. The gallbladder is unremarkable with no evidence of radiopaque gallstones, gallbladder wall thickening, or obvious pericholecystic inflammatory changes. PANCREAS: Unremarkable. SPLEEN: Unremarkable. ADRENAL GLANDS: Unremarkable. KIDNEYS AND URETERS: The kidneys are normal in size, shape, and attenuation. No hydronephrosis, hydroureter, or calculi seen. No perinephric stranding. Simple cyst at the upper pole of the left kidney. No specific follow-up recommended. BLADDER: Unremarkable. GASTROINTESTINAL TRACT: The small and large bowel are unremarkable. The appendix is unremarkable. ABDOMINAL WALL: No significant hernia is appreciated. LYMPH NODES: Normal. VASCULAR: Unremarkable. PELVIC VISCERA: Uterus not seen. No adnexal mass. OSSEOUS STRUCTURES: Unremarkable. CT/CT abdomen pelvis w IV con IMPRESSION: No acute findings in the abdomen or pelvis. No inflammatory changes. Fleischner guidelines were followed.
[2022-10-15 19:33] VITALS: BP 140/85; PULSE 105; RESP 16; TEMP 37.6; O2SAT 95; BMI 39.0
--- NOTE | 2022-10-15 19:38 | ED_ITS ---
HPI - General Adult General Chief complaint: General Medical <ANALILIA Liz - Last Filed: 10/15/22 19:38> Stated complaint: Vomiting/Diarrhea/chills <ANALILIA Liz - Last Filed: 10/15/22 19:38> Time Seen by Provider: 10/15/22 21:13 <ANALILIA Liz - Last Filed: 10/15/22 19:38> Source: patient <Amilcar Ronquillo MD - Last Filed: 10/16/22 02:35> Mode of arrival: ambulatory <Amilcar Ronquillo MD - Last Filed: 10/16/22 02:35> Limitations: no limitations <Amilcar Ronquillo MD - Last Filed: 10/16/22 02:35> History of Present Illness HPI narrative: Patient 47 years old with history of arthritis, migraine, asthma, otherwise healthy comes here for upper abdominal pain with nausea and vomiting last 3 days had fever 101 at home no abdominal distension no radiation of the pain to the back no relation with food no urinary complaints no back pain patient never had similar pain in the past patient also complaining of sore throat for last few days painful to swallow and swelling of the glands <Amilcar Ronquillo MD - Last Filed: 10/16/22 02:35> Related Data Home medications: Previous Rx's Medication Instructions Recorded cyclobenzaprine 5 mg tablet 5 mg PO TID PRN muscle spasm #14 10/12/20 tabs albuterol sulfate 0.63 mg/3 mL 0.63 mg (3 mL) inhalation QID PRN 10/30/21 solution for nebulization shortness of breath or wheezing #75 mL albuterol sulfate 90 mcg/actuation 1 inh inhalation QID PRN shortness 10/30/21 aerosol inhaler of breath or wheezing #8.5 grams azithromycin 250 mg tablet See Rx Instructions PO .COMPLEX #6 10/30/21 tabs cyclobenzaprine 10 mg tablet 10 mg PO Q8H PRN Muscle spasm #14 10/30/21 tabs nebulizers (AeroEclipse II #1 ea 10/30/21 Nebulizer) prednisone 20 mg tablet 40 mg PO DAILY rash 5 days #10 tabs 10/30/21 tramadol 50 mg tablet 50 mg PO Q8H PRN pain #14 tabs 10/30/21 albuterol sulfate 90 mcg/actuation 2 puff inhalation Q4-6H PRN 06/09/22 aerosol inhaler shortness of breath or wheezing #8.5 grams benzonatate 100 mg capsule 100 mg PO TID PRN cough 5 days #21 06/09/22 caps prednisone 20 mg tablet 40 mg PO DAILY 5 days #10 tabs 06/09/22 cyclobenzaprine 10 mg tablet 10 mg PO TID #10 tabs 09/26/22 cefuroxime axetil 500 mg tablet 500 mg PO BID #20 tabs 10/16/22 <ANALILIA Liz - Last Filed: 10/15/22 19:38> Allergies/adverse reactions: Allergies Allergy/AdvReac Type Severity Reaction Status Date / Time aspirin [ASA] Allergy Unknown UNKNOWN Verified 02/19/22 12:32 Penicillins [PENICILLINS] Allergy Unknown UNKNOWN Verified 02/19/22 12:32 <ANALILIA Liz - Last Filed: 10/15/22 19:38> Review of Systems Review of Systems: Constitutional : No Weight loss, ++ Fever, ++ Chills ENT/Mouth : No sore throat, No Rhinorrhea Eyes: No Eye Pain, No Swelling Cardiovascular : No Chest Pain, no palpitations Respiratory : No Cough, No Sputum, no shortness of breath Gastrointestinal : no Nausea, No Vomiting, No Diarrhea, ++ abdominal Pain, no black stools Genitourinary : No Dysuria, No Urinary Frequency Musculoskeletal : No joint pain, No Myalgias, No Joint Swelling Skin : No Skin Lesions, No rash Neuro : No Weakness, No Numbness, No Dizziness, No Headache Psych : No Anxiety/Panic, No Depression Heme/Lymph: No Bruising, No Lymphadenopathy Endocrine : No Polyuria, No Polydipsia All other systems reviewed and are negative <Amilcar Ronquillo MD - Last Fi led: 10/16/22 02:35> Yes all other systems are reviewed and are negative <Amilcar Ronquillo MD - Last Filed: 10/16/22 02:35> PMFSH Past Medical History Medical History: Medical History Asthma Head ache HTN (hypertension) <ANALILIA Liz - Last Filed: 10/15/22 19:38> Social History Social History: Social History Alcohol intake: never Smoked in Last 30 Days: No Use of substances other than those prescribed or required for medical reasons: No Advance Directives: No Advance Directives Information Provided: Yes Patient : No <ANALILIA Liz - Last Filed: 10/15/22 19:38> Physical Exam ED Vital Signs: Vital Signs - 24 hr 10/15/22 19:33 10/15/22 21:08 10/15/22 21:44 Temperature 99.6 F 101.3 F H 100.2 F Pulse Rate 105 H 97 94 Respiratory Rate 16 20 18 Blood Pressure 140/85 H 140/92 H 129/73 Pulse Oximetry 95 98 99 Oxygen Delivery Method Room Air Nasal Cannula Nasal Cannula Oxygen Flow Rate 2 2 10/15/22 21:56 10/15/22 23:26 10/16/22 00:00 Temperature 98.6 F 98.7 F Pulse Rate 82 Respiratory Rate 24 H 16 Blood Pressure 115/66 Pulse Oximetry 98 Oxygen Delivery Method Oxygen Flow Rate 10/16/22 01:20 Temperature 98.4 F Pulse Rate 84 Respiratory Rate 16 Blood Pressure 119/68 Pulse Oximetry 98 Oxygen Delivery Method Room Air Oxygen Flow Rate BMI result Body Mass Index 39.0 <ANALILIA Liz - Last Filed: 10/15/22 19:38> Vital Signs - 24 hr 10/15/22 19:33 10/15/22 21:08 10/15/22 21:44 Temperature 99.6 F 101.3 F H 100.2 F Pulse Rate 105 H 97 94 Respiratory Rate 16 20 18 Blood Pressure 140/85 H 140/92 H 129/73 Pulse Oximetry 95 98 99 Oxygen Delivery Method Room Air Nasal Cannula Nasal Cannula Oxygen Flow Rate 2 2 10/15/22 21:56 10/15/22 23:26 10/16/22 00:00 Temperature 98.6 F 98.7 F Pulse Rate 82 Respiratory Rate 24 H 16 Blood Pressure 115/66 Pulse Oximetry 98 Oxygen Delivery Method Oxygen Flow Rate 10/16/22 01:20 Temperature 98.4 F Pulse Rate 84 Respiratory Rate 16 Blood Pressure 119/68 Pulse Oximetry 98 Oxygen Delivery Method Room Air Oxygen Flow Rate BMI result Body Mass Index 39.0 <Amilcar Ronquillo MD - Last Filed: 10/16/22 02:35> Appearance: Alert. Oriented X3. No acute distress. Eyes: No pallor/icterus ENT: Pharynx erythematous with exudate Oral Mucosa moist bilateral upper cervical lymph nodes++ tympanic membrane intact Neck: Normal inspection. Neck supple. CVS: Normal heart rate and rhythm. Pulses normal. Respiratory: No respiratory distress. Equal air entry bilateral, no wheezing/rales/rhonchi Abdomen: Soft , epigastric tenderness ++. Bowel sounds are present, no mass palpable, no CVA tenderness Skin: Skin warm and dry. Normal skin color. Normal skin turgor. Extremities: No lower extremity edema. No calf tenderness Neuro: Oriented X 3. No motor deficit. <Amilcar Ronquillo MD - Last Filed: 10/16/22 02:35> Course Course Course Narrative: RME performed by Megan Andrew PA-C. Patient is a 47 year old female presenting to the emergency department with vomiting, diarrhea, and chills. Labs ordered. Patient placed back in the waiting room pending results and room availability. <ANALILIA Liz - Last Filed: 10/15/22 19:38> Medications Administered Discontinued Medications Generic Name Dose Route Start Last Admin Trade Name Freq PRN Reason Stop Dose Admin Acetaminophen 975 mg 10/15/22 21:28 10/15/22 21:54 Acetaminophen 325 Mg Tablet PO 10/15/22 21:29 975 mg ONCE ONE Administration Sodium Chloride 1,000 mls @ 999 mls/hr 10/15/22 21:28 10/15/22 22:58 Ns IV 10/15/22 22:28 Infused .Q1H1M ONE Infusion Ceftriaxone Sodium 1 gm/ 50 mls @ 100 mls/hr 10/16/22 00:01 10/16/22 01:23 Sodium Chloride IV 10/16/22 00:30 Infused ONCE ONE Infusion Iohexol 100 ml 10/15/22 22:20 10/15/22 22:20 Iohexol 350 Mg/Ml 100 Ml Infus..Btl IV 10/15/22 22:21 85 ml ONCE ONE Administration Morphine Sulfate 4 mg 10/15/22 21:29 10/15/22 21:56 Morphine Sulfate 4 Mg/Ml Cartridge IVPUSH 10/15/22 21:30 4 mg ONCE ONE Administration Protocol Ondansetron HCl 4 mg 10/15/22 21:29 10/15/22 21:56 Ondansetron Hcl 4 Mg/2 Ml Vial IVPUSH 10/15/22 21:30 4 mg ONCE ONE Administration <ANALILIA Liz - Last Filed: 10/15/22 19:38> Medications Administered Discontinued Medications Generic Name Dose Route Start Last Admin Trade Name Leonarda PRN Reason Stop Dose Admin Acetaminophen 975 mg 10/15/22 21:28 10/15/22 21:54 Acetaminophen 325 Mg Tablet PO 10/15/22 21:29 975 mg ONCE ONE Administration Sodium Chloride 1,000 mls @ 999 mls/hr 10/15/22 21:28 10/15/22 22:58 Ns IV 10/15/22 22:28 Infused .Q1H1M ONE Infusion Ceftriaxone Sodium 1 gm/ 50 mls @ 100 mls/hr 10/16/22 00:01 10/16/22 01:23 Sodium Chloride IV 10/16/22 00:30 Infused ONCE ONE Infusion Iohexol 100 ml 10/15/22 22:20 10/15/22 22:20 Iohexol 350 Mg/Ml 100 Ml Infus..Btl IV 10/15/22 22:21 85 ml ONCE ONE Administration Morphine Sulfate 4 mg 10/15/22 21:29 10/15/22 21:56 Morphine Sulfate 4 Mg/Ml Cartridge IVPUSH 10/15/22 21:30 4 mg ONCE ONE Administration Protocol Ondansetron HCl 4 mg 10/15/22 21:29 10/15/22 21:56 Ondansetron Hcl 4 Mg/2 Ml Vial IVPUSH 10/15/22 21:30 4 mg ONCE ONE Administration <Amilcar Ronquillo MD - Last Filed: 10/16/22 02:35> Medical Decision Making Medical Decision Making MDM Narrative: Patient with sore throat with fever with upper abdominal pain CT scan abdomen negative rapid strep is positive patient received a dose of Rocephin IV discharge patient on Ceftin <Amilcar Ronquillo MD - Last Filed: 10/16/22 02:35> Lab Data [facility] Lab Attestation statement: I reviewed the patient's lab results. <Amilcar Ronquillo MD - Last Filed: 10/16/22 02:35> Result Diagrams: 10/15/22 19:50 10/15/22 19:50 <ANALILIA Liz - Last Filed: 10/15/22 19:38> Labs: Lab Results 10/15/22 10/15/22 10/15/22 Range/Units 19:50 19:50 19:50 WBC 17.2 H (4.8-10.8) X10*3/uL RBC 5.35 (4.20-5.50) X10*6/uL Hgb 14.6 (12.0-16.0) g/dl Hct 41.1 (37.0-47.0) % MCV 76.8 L (80.0-98.0) fL MCH 27.3 (27.0-33.0) pg MCHC 35.5 H (31.0-35.0) g/dl RDW 12.9 (11.0-16.0) % Plt Count 294 (160-400) X10*3/uL MPV 9.6 (9.4-12.3) fL Immature Gran % (Auto) 0.5 H (0.0-0.4) % Neut % (Auto) 82.1 H (45-73) % Lymph % (Auto) 8.7 L (20-40) % [place] % (Auto) 7.9 (2-11) % Eos % (Auto) 0.6 (0-4) % Baso % (Auto) 0.2 (0-2) % Lymph # (Auto) 1.5 (1.2-4.9) X10*3/uL [place] # (Auto) 1.4 H (0.1-1.2) X10*3/uL Eos # (Auto) 0.1 (0.0-0.4) X10*3/uL Baso # (Auto) 0.0 (0.0-0.2) X10*3/uL Abs Immat Gran (auto) 0.08 H (0.00-0.03) X10*3/uL Absolute Neuts (auto) 14.1 H (2.0-8.3) x10*3/uL Absolute Nucleated RBC 0.000 (0.0-0.012) X10*3/uL Nucleated RBC % (auto) 0.0 (0.0-0.2) /100WBC Sodium 137 (135-145) mmol/L Potassium 3.7 (3.3-5.1) mmol/L Chloride 100 (96-108) mmol/L Carbon Dioxide 26 (22-29) mmol/L Anion Gap 15 (12-20) BUN 10 (9-16) mg/dL Creatinine 1.05 (0.5-1.4) mg/dL Estim Creat Clear Calc 65.0 Estimated GFR 56 Random Glucose 209 H (60-115) mg/dL Lactic Acid (0.5-2.0) mmol/L Calcium 9.6 (8.4-10.2) mg/dL Magnesium 2.1 (1.6-2.6) mg/dL Total Bilirubin 1.4 H (0.0-1.0) mg/dL AST 12 (5-31) U/L ALT 14 (0-31) U/L Alkaline Phosphatase 100 (39-117) U/L Total Protein 7.6 (6.5-8.0) g/dL Albumin 4.0 (3.5-5.0) g/dL Lipase 9 (8-78) U/L COVID-19 ([facility]) Negative (Negative) COVID-19 Clin Com See Note S. pyogenes GrpA INGA (Negative) 10/15/22 10/16/22 Range/Units 21:39 00:25 WBC (4.8-10.8) X10*3/uL RBC (4.20-5.50) X10*6/uL Hgb (12.0-16.0) g/dl Hct (37.0-47.0) % MCV (80.0-98.0) fL MCH (27.0-33.0) pg MCHC (31.0-35.0) g/dl RDW (11.0-16.0) % Plt Count (160-400) X10*3/uL MPV (9.4-12.3) fL Immature Gran % (Auto) (0.0-0.4) % Neut % (Auto) (45-73) % Lymph % (Auto) (20-40) % [place] % (Auto) (2-11) % Eos % (Auto) (0-4) % Baso % (Auto) (0-2) % Lymph # (Auto) (1.2-4.9) X10*3/uL [place] # (Auto) (0.1-1.2) X10*3/uL Eos # (Auto) (0.0-0.4) X10*3/uL Baso # (Auto) (0.0-0.2) X10*3/uL Abs Immat Gran (auto) (0.00-0.03) X10*3/uL Absolute Neuts (auto) (2.0-8.3) x10*3/uL Absolute Nucleated RBC (0.0-0.012) X10*3/uL Nucleated RBC % (auto) (0.0-0.2) /100WBC Sodium (135-145) mmol/L Potassium (3.3-5.1) mmol/L Chloride (96-108) mmol/L Carbon Dioxide (22-29) mmol/L Anion Gap (12-20) BUN (9-16) mg/dL Creatinine (0.5-1.4) mg/dL Estim Creat Clear Calc Estimated GFR Random Glucose (60-115) mg/dL Lactic Acid 1.1 (0.5-2.0) mmol/L Calcium (8.4-10.2) mg/dL Magnesium (1.6-2.6) mg/dL Total Bilirubin (0.0-1.0) mg/dL AST (5-31) U/L ALT (0-31) U/L Alkaline Phosphatase (39-117) U/L Total Protein (6.5-8.0) g/dL Albumin (3.5-5.0) g/dL Lipase (8-78) U/L COVID-19 ([facility]) (Negative) COVID-19 Clin Com S. pyogenes GrpA INGA Positive A (Negative) <ANALILIA Liz - Last Filed: 10/15/22 19:38> Lab Results 10/15/22 10/15/22 10/15/22 Range/Units 19:50 19:50 19:50 WBC 17.2 H (4.8-10.8) X10*3/uL RBC 5.35 (4.20-5.50) X10*6/uL Hgb 14.6 (12.0-16.0) g/dl Hct 41.1 (37.0-47.0) % MCV 76.8 L (80.0-98.0) fL MCH 27.3 (27.0-33.0) pg MCHC 35.5 H (31.0-35.0) g/dl RDW 12.9 (11.0-16.0) % Plt Count 294 (160-400) X10*3/uL MPV 9.6 (9.4-12.3) fL Immature Gran % (Auto) 0.5 H (0.0-0.4) % Neut % (Auto) 82.1 H (45-73) % Lymph % (Auto) 8.7 L (20-40) % [place] % (Auto) 7.9 (2-11) % Eos % (Auto) 0.6 (0-4) % Baso % (Auto) 0.2 (0-2) % Lymph # (Auto) 1.5 (1.2-4.9) X10*3/uL [place] # (Auto) 1.4 H (0.1-1.2) X10*3/uL Eos # (Auto) 0.1 (0.0-0.4) X10*3/uL Baso # (Auto) 0.0 (0.0-0.2) X10*3/uL Abs Immat Gran (auto) 0.08 H (0.00-0.03) X10*3/uL Absolute Neuts (auto) 14.1 H (2.0-8.3) x10*3/uL Absolute Nucleated RBC 0.000 (0.0-0.012) X10*3/uL Nucleated RBC % (auto) 0.0 (0.0-0.2) /100WBC Sodium 137 (135-145) mmol/L Potassium 3.7 (3.3-5.1) mmol/L Chloride 100 (96-108) mmol/L Carbon Dioxide 26 (22-29) mmol/L Anion Gap 15 (12-20) BUN 10 (9-16) mg/dL Creatinine 1.05 (0.5-1.4) mg/dL Estim Creat Clear Calc 65.0 Estimated GFR 56 Random Glucose 209 H (60-115) mg/dL Lactic Acid (0.5-2.0) mmol/L Calcium 9.6 (8.4-10.2) mg/dL Magnesium 2.1 (1.6-2.6) mg/dL Total Bilirubin 1.4 H (0.0-1.0) mg/dL AST 12 (5-31) U/L ALT 14 (0-31) U/L Alkaline Phosphatase 100 (39-117) U/L Total Protein 7.6 (6.5-8.0) g/dL Albumin 4.0 (3.5-5.0) g/dL Lipase 9 (8-78) U/L COVID-19 ([facility]) Negative (Negative) COVID-19 Clin Com See Note S. pyogenes GrpA INGA (Negative) 10/15/22 10/16/22 Range/Units 21:39 00:25 WBC (4.8-10.8) X10*3/uL RBC (4.20-5.50) X10*6/uL Hgb (12.0-16.0) g/dl Hct (37.0-47.0) % MCV (80.0-98.0) fL MCH (27.0-33.0) pg MCHC (31.0-35.0) g/dl RDW (11.0-16.0) % Plt Count (160-400) X10*3/uL MPV (9.4-12.3) fL Immature Gran % (Auto) (0.0-0.4) % Neut % (Auto) (45-73) % Lymph % (Auto) (20-40) % [place] % (Auto) (2-11) % Eos % (Auto) (0-4) % Baso % (Auto) (0-2) % Lymph # (Auto) (1.2-4.9) X10*3/uL [place] # (Auto) (0.1-1.2) X10*3/uL Eos # (Auto) (0.0-0.4) X10*3/uL Baso # (Auto) (0.0-0.2) X10*3/uL Abs Immat Gran (auto) (0.00-0.03) X10*3/uL Absolute Neuts (auto) (2.0-8.3) x10*3/uL Absolute Nucleated RBC (0.0-0.012) X10*3/uL Nucleated RBC % (auto) (0.0-0.2) /100WBC Sodium (135-145) mmol/L Potassium (3.3-5.1) mmol/L Chloride (96-108) mmol/L Carbon Dioxide (22-29) mmol/L Anion Gap (12-20) BUN (9-16) mg/dL Creatinine (0.5-1.4) mg/dL Estim Creat Clear Calc Estimated GFR Random Glucose (60-115) mg/dL Lactic Acid 1.1 (0.5-2.0) mmol/L Calcium (8.4-10.2) mg/dL Magnesium (1.6-2.6) mg/dL Total Bilirubin (0.0-1.0) mg/dL AST (5-31) U/L ALT (0-31) U/L Alkaline Phosphatase (39-117) U/L Total Protein (6.5-8.0) g/dL Albumin (3.5-5.0) g/dL Lipase (8-78) U/L COVID-19 ([facility]) (Negative) COVID-19 Clin Com S. pyogenes GrpA INGA Positive A (Negative) <Amilcar Ronquillo MD - Last Filed: 10/16/22 02:35> Discharge Plan Discharge Clinical Impression: Strep pharyngitis <ANALILIA Liz - Last Filed: 10/15/22 19:38> Patient Disposition: Home, Self-Care <ANALILIA Liz - Last Filed: 10/15/22 19:38> Instructions: Strep Throat (ED) <ANALILIA Liz - Last Filed: 10/15/22 19:38> Additional Instructions: Take antibiotics as prescribed Drink plenty of fluids Tylenol/Motrin for fever <ANALILIA Liz - Last Filed: 10/15/22 19:38> Prescriptions: New cefuroxime axetil 500 mg tablet 500 mg PO BID Qty: 20 0RF No Action cyclobenzaprine 5 mg tablet 5 mg PO TID PRN (Reason: muscle spasm) Qty: 14 0RF Rx Instructions: This medication will cause drowsiness, no driving for 8 hours after taking albuterol sulfate 90 mcg/actuation HFA aerosol inhaler 2 puff inhalation Q4-6H PRN (Reason: shortness of breath or wheezing) Qty: 8.5 0RF benzonatate 100 mg capsule 100 mg PO TID PRN (Reason: cough) 5 Days Qty: 21 0RF prednisone 20 mg tablet 40 mg PO DAILY 5 Days Qty: 10 0RF cyclobenzaprine 10 mg tablet 10 mg PO TID Qty: 10 0RF tramadol 50 mg tablet 50 mg PO Q8H PRN (Reason: pain) Qty: 14 0RF Rx Instructions: May partially fill upon patient request cyclobenzaprine 10 mg tablet 10 mg PO Q8H PRN (Reason: Muscle spasm) Qty: 14 0RF azithromycin 250 mg tablet See Rx Instructions PO .COMPLEX Qty: 6 0RF Rx Instructions: take 500 mg today (day 1), then 250 mg for 4 days (days 2-5) prednisone 20 mg tablet 40 mg PO DAILY 5 Days Qty: 10 0RF albuterol sulfate 0.63 mg/3 mL solution for nebulization 0.63 mg inhalation QID PRN (Reason: shortness of breath or wheezing) Qty: 75 0RF albuterol sulfate 90 mcg/actuation HFA aerosol inhaler 1 inh inhalation QID PRN (Reason: shortness of breath or wheezing) Qty: 8.5 0RF (DME) AeroEclipse II Nebulizer Misc See Rx Instructions .ROUTE .MEDSUPPLY Qty: 1 0RF Rx Instructions: As directed <ANALILIA Liz - Last Filed: 10/15/22 19:38> Interventions: ED Discharge Assessment Last Done: 10/16/22 01:31 <ANALILIA Liz - Last Filed: 10/15/22 19:38> Discharge Date/Time: 10/16/22 01:32 <ANALILIA Liz - Last Filed: 10/15/22 19:38>
[2022-10-15 20:00] LABS: MANUAL DIFF FLAG NO
[2022-10-15 20:01] LABS: Basophils Percent Auto 0.2 % (0-2); Eosinophils Absolute Auto 0.1 X10*3/uL (0.0-0.4); Eosinophils Percent Auto 0.6 % (0-4); Hematocrit 41.1 % (37.0-47.0); Hemoglobin 14.6 g/dl (12.0-16.0); Imm Gran Abs Auto 0.08 X10*3/uL (0.00-0.03); Imm Gran Pct Auto 0.5 % (0.0-0.4); Lymphocytes Absolute Auto 1.5 X10*3/uL (1.2-4.9); Lymphocytes Percent Auto 8.7 % (20-40); Mean Corpuscular HGB Conc 35.5 g/dl (31.0-35.0); Mean Corpuscular Hemoglobin 27.3 pg (27.0-33.0); Mean Corpuscular Volume 76.8 fL (80.0-98.0); Mean Platelet Volume 9.6 fL (9.4-12.3); Monocytes Absolute Auto 1.4 X10*3/uL (0.1-1.2); Monocytes Percent Auto 7.9 % (2-11); Neutrophils Absolute Auto 14.1 x10*3/uL (2.0-8.3); Neutrophils Percent Auto 82.1 % (45-73); Platelet Count 294 X10*3/uL (160-400); Red Blood Count 5.35 X10*6/uL (4.20-5.50); Red Cell Distribution Width 12.9 % (11.0-16.0); White Blood Count 17.2 X10*3/uL (4.8-10.8)
[2022-10-15 20:11] LABS: IDNOW Serial# BCCEAD1C
[2022-10-15 20:12] LABS: COVID-19 Test Negative (Negative)
[2022-10-15 20:16] LABS: Alanine Aminotransferase 14 U/L (0-31); Alkaline Phosphatase 100 U/L (39-117); Anion Gap 15 (12-20); Aspartate Amino Transferase 12 U/L (5-31); Bilirubin Total 1.4 mg/dL (0.0-1.0); Blood Urea Nitrogen 10 mg/dL (9-16); Calcium 9.6 mg/dL (8.4-10.2); Carbon Dioxide 26 mmol/L (22-29); Chloride 100 mmol/L (96-108); Estimated Glomerular Filt Rate 56; Glucose Random 209 mg/dL (60-115); Magnesium 2.1 mg/dL (1.6-2.6); Potassium 3.7 mmol/L (3.3-5.1); Sodium 137 mmol/L (135-145); Total Protein 7.6 g/dL (6.5-8.0)
--- NOTE | 2022-10-15 21:07 | PC.NURSE ---
pt c/o headache, n/v, abd pain, a liittle bit chest pain, thrt pain, and sob pt O2 at 92% RA, O2 supplement placed- increased to 97% on 2L NC pt is febrile 101.3
[2022-10-15 21:08] VITALS: BP 140/92; PULSE 97; RESP 20; TEMP 38.5; O2SAT 98
--- NOTE | 2022-10-15 21:10 | MHC.EDTECH ---
this pct just assumed care of pt at this time ,pt vitals sign taken ,pt has a temp of 101.3 ,adithya blackmon is aware .
[2022-10-15 21:44] VITALS: BP 129/73; PULSE 94; RESP 18; TEMP 37.9; O2SAT 99
--- NOTE | 2022-10-15 21:45 | MHC.EDTECH ---
pt 2200 rounding done ,vitals sign taken ,pt blood culture 1 set ,2nd set and lactic acid .
--- NOTE | 2022-10-15 21:45 | PC.NURSE ---
pt aware that a urine needs to be collected
[2022-10-15] MEDS: 0.9 % Sodium Chloride 1,000 ML 999 ML IV (21:46)
[2022-10-15] MEDS: Acetaminophen 325 MG TABLET 975 MG PO (21:54)
[2022-10-15 21:56] VITALS: RESP 24
[2022-10-15] MEDS: ondansetron HCL 4 MG/2 ML VIAL IVPUSH (21:56)
[2022-10-15] MEDS: Morphine Sulfate 4 MG/ML CARTRIDGE IVPUSH (21:56)
[2022-10-15 22:14] LABS: Lactic Acid 1.1 mmol/L (0.5-2.0)
[2022-10-15] MEDS: iohexoL 350 MG/ML 100 ML INFUS..BTL IV (22:20)
[2022-10-15 22:24] LABS: Lipase 9 U/L (8-78)
[2022-10-15 23:26] VITALS: TEMP 37
[2022-10-16] VITALS: BP 115/66; PULSE 82; RESP 16; TEMP 37.1; O2SAT 98
--- NOTE | 2022-10-16 00:26 | MHC.EDTECH ---
0000 ROUNDING DONE ,VITALS SIGN TAKEN ,PT STREP SWAB COLLECTED AND SENT TO LAB .
[2022-10-16] MEDS: cefTRIAXone sodium 1 GM in 0.9 % Sodium Chloride 50 ML IV (00:28)
[2022-10-16 00:40] LABS: IDNOW Serial# 08D9AD1C; Strep A Nucleic Acid Positive (Negative)
[2022-10-16 01:20] VITALS: BP 119/68; PULSE 84; RESP 16; TEMP 36.9; O2SAT 98
--- NOTE | 2022-10-16 01:32 | PC.NURSE ---
Discharge instructions given/explained to pt No apparent distress, no respiratory distress, no sob pt able to speak in full sentences IV cath intact upon removal Ambulates safely/independently
--- NOTE | 2022-10-26 14:19 | PC.NURSE ---
PT CALLED INSTRUCTED BY [facility] FROM [facility], DISCUSSED PT WITH ANALILIA CRAIG, INSTRUCTED TO FUP WITH PCP [facility] SHE DOES FEEL SIGNIFICANTLY IMPROVED SINCE TAKING PO ABX.
== END 2022-10-16 01:32 | disposition home or self-care (01) ==
PROVIDERS: Physician Assistant Medical; Emergency Provider Internal Medicine
DX: J02.0 Streptococcal pharyngitis (principal); R10.13 Epigastric pain; R11.2 Nausea with vomiting, unspecified; Z20.822 Contact with and (suspected) exposure to COVID-19; Z20.828 Contact with and (suspected) exposure to other viral communicable diseases; Z79.899 Other long term (current) drug therapy
CPT/HCPCS: 36415; 74177; 80053; 83605; 83690; 83735; 85025; 87040; 87077; 87205; 87635; 87651; 96361; 96365; 96375; 99285; J0696; J2270; J2405; Q9967

== ENCOUNTER 2023-03-21 10:25 | Outpatient (REF) | payer MEDICAID, SELFPAY | END 2023-03-21 10:26 | disposition home or self-care (01) | LOC: HO.HHCLNP 10:25 | PROVIDERS: Visit Provider Registered Nurse | DX: J02.9 Acute pharyngitis, unspecified (principal) | CPT/HCPCS: 87070 ==